=== PATIENT | female | born 1975 | race Caucasian/White ===

== ENCOUNTER 2016-07-15 09:48 | Outpatient (RCR) | payer OTHER ==
[~2016-07-15 09:48] MED LIST: ACET-2469 PO; ACHD5005 PO; CELE-63 PO; CPR500T PO; DESV50TA PO; DULO30CA; ENOX100D4 SQ; ENOX100D9 SQ; ENXP100I SC; ENXP40I.4 SC; FRS325T; GABA-488 PO; HYDR-2889 PO; IBP600T1 PO; NALT1TAB PO; NFNEB10T PO; OMEP-10 PO; WARF7.5T; WRF10T; WRF10T PO; ZLP10T PO; [UNRECOGNIZED DRUG - OTHER]
--- OUTSIDE RECORDS SUMMARY | 2016-07-15 09:51 | XMS REPORT | Continuity of Care Document ---
Author Author [facility] Address Unknown Phone Unavailable Active Allergies and Adverse Reactions Not on File Current Medications Not on file Active Problems Not on file Social History Tobacco Use Types Packs/Day Years Used Date Never Assessed Plan of Care Health Maintenance Due Date Last Done Comments Tdap Vaccines 1985 Tetanus Vaccine (Td 1985 Booster) Varicella Vaccines (1 of 1987 2 - 2 Dose Adolescent Series) Cervical Cancer Screening 1995 Breast Cancer 2014 Screening-Mammogram Influenza Vaccine (#1) 2016 Zoster Vaccine 2034 Annual Wellness Visit 2039 Results from Last 3 Months Not on file
[2016-07-15 10:09] LABS: BASOPHILS % (AUTO) 0 % (0-10); EOSINOPHILS # (AUTO) 0.1 10^3/uL (0.0-0.3); EOSINOPHILS % (AUTO) 2 % (0-10); LYMPHOCYTES # (AUTO) 1.8 X 10^3 (1.0-4.0); LYMPHOCYTES % (AUTO) 30 % (12-44); MEAN CORPUSCULAR HEMOGLOBIN 30 PG (25-34); MEAN CORPUSCULAR HGB CONC 33 G/DL (32-36); MEAN CORPUSCULAR VOLUME 91 FL (80-99); MEAN PLATELET VOLUME 8.7 FL (7.4-10.4); MONOCYTES # (AUTO) 0.4 X 10^3 (0.0-1.0); MONOCYTES % (AUTO) 6 % (0-12); NEUTROPHILS # (AUTO) 3.7 X 10^3 (1.8-7.8); NEUTROPHILS % (AUTO) 62 % (42-75); PLATELET COUNT 317 10^3/uL (130-400); RED BLOOD COUNT 4.39 10^6/uL (4.35-5.85); RED CELL DISTRIBUTION WIDTH 13.2 % (10.0-14.5)
[2016-07-15 10:24] LABS: INR 2.4 (0.8-1.4); PROTHROMBIN TIME PATIENT 25.8 SEC (12.2-14.7)
[2016-07-15 10:35] LABS: ALANINE AMINOTRANSFERASE 30 U/L (0-55); ALBUMIN 4.2 G/DL (3.2-4.5); ANION GAP 8 MMOL/L (5-14); ASPARTATE AMINO TRANSFERASE 18 U/L (5-34); BILIRUBIN,TOTAL 0.4 MG/DL (0.1-1.0); BLOOD UREA NITROGEN 12 MG/DL (7-18); BUN/CREATININE RATIO 18; CALCIUM 9.3 MG/DL (8.5-10.1); CARBON DIOXIDE 24 MMOL/L (21-32); CHLORIDE 110 MMOL/L (98-107); CREATININE SERUM 0.67 MG/DL (0.60-1.30); GFR ESTIMATED > 60; GLUCOSE 99 MG/DL (70-105); POTASSIUM 4.1 MMOL/L (3.6-5.0); SODIUM 142 MMOL/L (135-145); TOTAL PROTEIN 6.7 G/DL (6.4-8.2)
== END 2016-10-13 | disposition home or self-care (01) ==
LOC: ONC 09:48
PROVIDERS: ATTEND Internal Medicine Hematology & Oncology
DX: D68.59 Other primary thrombophilia (principal); Z86.711 Personal history of pulmonary embolism; Z86.718 Personal history of other venous thrombosis and embolism; Z79.01 Long term (current) use of anticoagulants
CPT/HCPCS: 36415; 80053; 85025; 85610; 99213

== ENCOUNTER 2017-12-07 14:32 | Outpatient (RCR) | payer OTHER ==
[2017-12-07 14:45] LABS: BASOPHILS % (AUTO) 0 % (0-10); EOSINOPHILS # (AUTO) 0.1 10^3/uL (0.0-0.3); EOSINOPHILS % (AUTO) 1 % (0-10); HEMATOCRIT 43 % (35-52); HEMOGLOBIN 14.3 G/DL (11.5-16.0); LYMPHOCYTES # (AUTO) 2.8 X 10^3 (1.0-4.0); LYMPHOCYTES % (AUTO) 32 % (12-44); MEAN CORPUSCULAR HEMOGLOBIN 31 PG (25-34); MEAN CORPUSCULAR HGB CONC 34 G/DL (32-36); MEAN CORPUSCULAR VOLUME 93 FL (80-99); MEAN PLATELET VOLUME 9.3 FL (7.4-10.4); MONOCYTES # (AUTO) 0.5 X 10^3 (0.0-1.0); MONOCYTES % (AUTO) 6 % (0-12); NEUTROPHILS # (AUTO) 5.4 X 10^3 (1.8-7.8); NEUTROPHILS % (AUTO) 61 % (42-75); PLATELET COUNT 333 10^3/uL (130-400); RED CELL DISTRIBUTION WIDTH 12.7 % (10.0-14.5); WHITE BLOOD COUNT 8.8 10^3/uL (4.3-11.0)
[2017-12-07 15:11] LABS: ALANINE AMINOTRANSFERASE 62 U/L (0-55); ALBUMIN 4.4 GM/DL (3.2-4.5); ALKALINE PHOSPHATASE 56 U/L (40-136); BILIRUBIN,TOTAL 0.4 MG/DL (0.1-1.0); BUN/CREATININE RATIO 25; CARBON DIOXIDE 27 MMOL/L (21-32); CHLORIDE 104 MMOL/L (98-107); CREATININE SERUM 0.72 MG/DL (0.60-1.30); GFR ESTIMATED > 60; GLUCOSE 121 MG/DL (70-105); POTASSIUM 3.9 MMOL/L (3.6-5.0); SODIUM 140 MMOL/L (135-145); TOTAL PROTEIN 7.2 GM/DL (6.4-8.2)
[2018-03-05] MEDS ORDERED: RIVA20TA PO ×2 (09:30)
[2018-03-05] MEDS ORDERED: NFNEB10T PO ×2 (09:30)
[2018-03-05] MEDS ORDERED: CELE200C PO ×2 (09:31)
== END 2018-03-07 | disposition home or self-care (01) ==
LOC: ONC 14:32
PROVIDERS: ATTEND Internal Medicine Hematology & Oncology
DX: D68.59 Other primary thrombophilia (principal); Z86.711 Personal history of pulmonary embolism; Z86.718 Personal history of other venous thrombosis and embolism; Z79.01 Long term (current) use of anticoagulants
CPT/HCPCS: 36415; 80053; 85025; 99213

== ENCOUNTER 2018-03-04 21:33 | Observation (INO) | payer OTHER ==
[~2018-03-04] VITALS: Ht 172.7 cm; Wt 140.9 kg
--- OUTSIDE RECORDS SUMMARY | 2018-03-04 21:40 | XMS REPORT ---
Author Author NAPOLEON FITZPATRICK Organization [facility] Address [address] [place] [address] Care Team Providers Care Hypnotherapist Name Role Phone NAPOLEON FITZPATRICK Unavailable PROBLEMS Type Condition ICD9-CM Code OWR73-HV Code Onset Dates Condition Status SNOMED Code Problem Obesity, unspecified 278.00 Active 027756402 Problem Obesity, unspecified obesity severity, unspecified obesity type E66.9 Active 656322020 Problem Abnormal stress test R94.39 Active 916977228 Problem Family history of diabetes mellitus V18.0 Active 355389815 Problem Routine general medical examination at health care facility V70.0 Active 173677967 Problem Other abnormal glucose 790.29 Active 728052752 Problem Primary osteoarthritis of left knee M17.12 Active 028427198 Problem Knee pain M25.569 Active 80877196 Problem Other fatigue R53.83 Active 779063537 Problem Essential hypertension I10 Active 50935911 Problem Abnormal glucose R73.09 Active 589675911 Problem Other malaise R53.81 Active 804957123 ALLERGIES No Information SOCIAL HISTORY Never Assessed PLAN OF CARE VITAL SIGNS MEDICATIONS Medication Instructions Dosage Frequency Start Date End Date Duration Status Pristiq 100 MG Orally Once a day 1 tablet 24h Sep, 10 days Active RESULTS No Results PROCEDURES No Known procedures IMMUNIZATIONS No Known Immunizations MEDICAL (GENERAL) HISTORY Type Description Date Medical History Protein C deficiency Monitor by Dr Case Medical History 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
--- OUTSIDE RECORDS SUMMARY | 2018-03-04 21:40 | XMS REPORT ---
Author NAPOLEON Ford Organization [employer] Address Unknown Phone Unavailable Care Team Providers Care Manager Grocery Name Role Phone NAPOLEON FTIZPATRICK CP Unavailable Allergies No Known Allergies Problems Problem Type Condition Code Onset Dates Condition Status Problem Obesity, unspecified 278.00 Active Problem Family history of diabetes mellitus V18.0 Active Problem Other abnormal glucose 790.29 Active Problem Abnormal stress test R94.39 Active Problem Essential hypertension I10 Active Problem Abnormal glucose R73.09 Active Problem Knee pain M25.569 Active Problem Other fatigue R53.83 Active Problem Routine general medical examination at health care facility V70.0 Active Problem Obesity, unspecified obesity severity, unspecified obesity type E66.9 Active Problem Other malaise R53.81 Active Medications Medication Code System Code Instructions Start Date End Date Status Dosage Celebrex [facility] [address]-64 200 mg Twice a day Oct 10, 2014 Aug 05, 2016 take 1 capsule (200 mg) by oral route 2 times per day as needed Results No Known Results Summary Purpose [employer] Submission
--- OUTSIDE RECORDS SUMMARY | 2018-03-04 21:40 | XMS REPORT ---
Author NAPOLEON Ford Organization [employer] Address Unknown Phone Unavailable Care Team Providers Care Entry Level Drafter Name Role Phone NAPOLEON FITZPATRICK CP Unavailable Allergies No Known Allergies Problems [...] Active Problem Other malaise R53.81 Active Medications No Known Medications Results No Known Results Summary Purpose [employer] Submission
--- OUTSIDE RECORDS SUMMARY | 2018-03-04 21:41 | XMS REPORT ---
Author Author NAPOLEON FITZPATRICK Organization [facility] Address [address] [place] [address] Care Team Providers Care Flat Optical Element Maker Name Role Phone NAPOLEON FITZPATRICK Unavailable PROBLEMS Type Condition ICD9-CM Code WIQ62-TC Code Onset Dates Condition Status SNOMED Code Problem Abnormal stress test R94.39 Active 727533102 Problem Essential hypertension I10 Active 67531080 Problem Obesity, unspecified obesity severity, unspecified obesity type E66.9 Active 201996218 Problem Protein C deficiency D68.59 Active 24196181 Problem Primary osteoarthritis of left knee M17.12 Active 747504089 Problem Other malaise R53.81 Active 657397495 Problem Other fatigue R53.83 Active 110244540 Problem Knee pain M25.569 Active 93784048 Problem Abnormal glucose R73.09 Active 570490498 ALLERGIES No Information ENCOUNTERS Encounter Location Date Diagnosis [place] [id number] [place] [address] Nov, [place] [address] [place] [address] Nov, Protein C deficiency D68.59 ; Pain in left knee M25.562 ; Hot flashes R23.2 ; Essential hypertension I10 ; Obesity, unspecified obesity severity, unspecified obesity type E66.9 and Pain in right knee M25.561 [place] [address] [address] Apr, [place] [address] [place] [id number] [place] [address] Mar, [place] [address] [address] Mar, Obesity, unspecified obesity severity, unspecified obesity type E66.9 and Encounter for screening mammogram for malignant neoplasm of breast Z12.31 [facility] [address] [address] January, [facility] [address] [address] January, [facility] [address] [address] January, [facility] [address] [address] January, [facility] [address] [place] [address] Dec, [facility] [address] [address] Nov, [place] [address] [place] [address] [address] 09 Oct, 2016 Hot flashes R23.2 [facility] [address] [address] 06 Oct, 2016 Obesity, unspecified obesity severity, unspecified obesity type E66.9 and Hot flashes R23.2 [place] [address] [address] Sep, Obesity, unspecified obesity severity, unspecified obesity type E66.9 [facility] [address], [place] [address] Sep, Obesity, unspecified obesity severity, unspecified obesity type E66.9 [facility] [address], [place] [address] Jul, [facility] [address] [place] [address] Jul, Obesity, unspecified obesity severity, unspecified obesity type E66.9 ; Essential hypertension I10 and Primary osteoarthritis of left knee M17.12 [facility] [address], [place] [address] Jul, [facility] [address] [place] [id number] [place] [address] Jun, [facility] [address] [place] [id number] [place] [address] Apr, [place] [address] [place] [id number] [place] [address] Apr, [facility] [address] [place] [id number] [place] [address] Apr, Atypical chest pain R07.89 [place] [address] [place] [id number] [place] [address] Feb, Obesity, unspecified obesity severity, unspecified obesity type E66.9 [place] [address] [place] [id number] [place] [address] January, Essential hypertension I10 [facility] [address] [place] [id number] [place] [address] Dec, [place] [address] [place] [id number] [place] [address] Nov, Obesity, unspecified obesity severity, unspecified obesity type E66.9 ; Essential hypertension I10 and Knee pain M25.569 [facility] [address] [place] [id number] [place] [address] Sep, Acute maxillary sinusitis J01.00 [facility] [address] [place] [id number] [place] [address] Aug, [place] [address] [place] [id number] [place] [address] Jul, Obesity, unspecified obesity severity, unspecified obesity type E66.9 ; Encounter for immunization Z23 ; Primary osteoarthritis of left knee M17.12 ; Family history of diabetes mellitus V18.0 and Other abnormal glucose 790.29 [place] [address] [place] [address] May, [facility] [address] [id number] [place] [address] Apr, [facility] [address] [id number] [place] [address] January, [facility] [address] [id number] [place] [address] January, [facility] [address] [id number] [place] [address] Dec, [facility] [address] [id number] [place] [address] Dec, [facility] [address] [id number] [place] [address] Sep, [facility] [address] [id number] [place] [address] Sep, [facility] [address] [id number] [place] [address] Sep, [facility] [address] [id number] [place] [address] Sep, [facility] [address] [id number] [place] [address] Sep, [facility] [address] [id number] [place] [address] Sep, [facility] [address] [id number] [place] [address] Sep, [facility] [address] [id number] [place] [address] Sep, [facility] [address] [id number] [place] [address] Sep, [facility] [address] [id number] [place] [address] Sep, IMMUNIZATIONS No Known Immunizations SOCIAL HISTORY Never Assessed REASON FOR VISIT PA Approval- Haley PLAN OF CARE VITAL SIGNS MEDICATIONS Unknown Medications RESULTS No Results PROCEDURES No Known procedures INSTRUCTIONS MEDICATIONS ADMINISTERED No Known Medications MEDICAL (GENERAL) HISTORY Type Description Date Medical [...]
--- OUTSIDE RECORDS SUMMARY | 2018-03-04 21:41 | XMS REPORT ---
Author Author NAPOLEON FITZPATRICK [facility] Address [address] [place] [address] Care Team Providers Care Furniture Assembler And Installer Name Role Phone NAPOLEON FITZPATRICK Unavailable PROBLEMS Type Condition ICD9-CM Code [id number] Code Onset Dates Condition Status SNOMED Code Problem Obesity, unspecified 278.00 Active 425276912 Problem Obesity, unspecified obesity severity, unspecified obesity type E66.9 Active 931200144 Problem Abnormal stress test R94.39 Active 095629024 Problem Family history of diabetes mellitus V18.0 Active 069219910 Problem Routine general medical examination at health care facility V70.0 Active 222687450 Problem Other abnormal glucose 790.29 Active 912759752 Problem Primary osteoarthritis of left knee M17.12 Active 650602666 Problem Knee pain M25.569 Active 40515273 Problem Other fatigue R53.83 Active 690707115 Problem Essential hypertension I10 Active 46952576 Problem Abnormal glucose R73.09 Active 488031552 Problem Other malaise R53.81 Active 845539150 ALLERGIES No Information SOCIAL HISTORY Never Assessed PLAN OF CARE VITAL SIGNS Height 68 in 2017-02-04 Weight 286.7 lbs 2017-02-04 BMI 43.59 kg/m2 2017-02-04 MEDICATIONS Medication Instructions Dosage Frequency Start Date End Date Duration Status Saxenda (Dose Escalation) 18 mg/3 mL Subcutaneous Once a day 3.0 mg 24h Sep, Apr, 90 days Active Gabapentin 300 MG Orally Three times a day 1 capsule 8h Oct, 30 day(s) Active NovoFine 30G X 8 MM Inject 24h Nov, Active Bystolic 10 mg Orally Once a day 1 tablet 24h Jul, Active Xarelto 20 MG Orally Once a day 1 tablet with food 24h Active Pristiq 100 MG Orally Once a day 1 tablet 24h Sep, 90 Active Diphenhydramine-Acetaminophen by oral route Sep, Active Celebrex 200 mg Orally twice a day 1 capsule 12h 08 Jul, 2016 Active RESULTS No Results PROCEDURES No Known [...]
--- OUTSIDE RECORDS SUMMARY | 2018-03-04 21:41 | XMS REPORT ---
Author Author NAPOLEON FITZPATRICK [facility] Address [address] [place] [address] Care Team Providers Care Power Distribution Engineer Name Role Phone NAPOLEON FITZPATRICK Unavailable PROBLEMS Type Condition ICD9-CM Code CGQ55-WL Code Onset Dates Condition Status SNOMED Code Problem Obesity, unspecified 278.00 Active 767320572 Problem Obesity, unspecified obesity severity, unspecified obesity type E66.9 Active 328571998 Problem Abnormal stress test R94.39 Active 787447603 Problem Family history of diabetes mellitus V18.0 Active 260788763 Problem Routine general medical examination at health care facility V70.0 Active 409491361 Problem Other abnormal glucose 790.29 Active 317116233 Problem Primary osteoarthritis of left knee M17.12 Active 305153530 Problem Knee pain M25.569 Active 87316722 Problem Other fatigue R53.83 Active 254100571 Problem Essential hypertension I10 Active 80798446 Problem Abnormal glucose R73.09 Active 065840899 Problem Other malaise R53.81 Active 187057863 ALLERGIES Unknown Allergies SOCIAL HISTORY No smoking Hx information available PLAN OF CARE VITAL SIGNS MEDICATIONS Medication Instructions Dosage Frequency Start Date End Date Duration Status Saxenda (Dose Escalation) 18 mg/3 mL Subcutaneous Once a day 0.6 mg QD x 7 days, 1.2 mg QD x 7 days, 1.8 mg QD x 7 days, 2.4 mg QD x 7 days, then 3 mg QD ( GOAL) 24h Jul, 10 Oct, 2016 28 days Active RESULTS No Results PROCEDURES No Known procedures IMMUNIZATIONS No Known Immunizations
--- OUTSIDE RECORDS SUMMARY | 2018-03-04 21:41 | XMS REPORT ---
Author Author NAPOLEON FITZPATRICK [facility] [employer] Address Unknown Phone Unavailable Care Team Providers Care Wine Manager Name Role Phone NAPOLEON FITZPATRICK CP Unavailable Allergies, Adverse Reactions, Alerts Substance Reaction Event Type Erythromycin Base Info Not Available Drug Allergy Problems Problem Type Condition Code Onset Dates Condition Status Problem Other abnormal glucose 790.29 Active Problem Routine general medical examination at health care facility V70.0 Active Problem Family history of diabetes mellitus V18.0 Active Problem Knee pain M25.569 Active Problem Essential hypertension I10 Active Problem Primary osteoarthritis of left knee M17.12 Active Problem Other malaise R53.81 Active Problem Other fatigue R53.83 Active Problem Abnormal glucose R73.09 Active Problem Obesity, unspecified obesity severity, unspecified obesity type E66.9 Active Assessment Essential hypertension I10 Active Assessment Obesity, unspecified obesity severity, unspecified obesity type E66.9 Active Problem Abnormal stress test R94.39 Active Assessment Primary osteoarthritis of left knee M17.12 Active Problem Obesity, unspecified 278.00 Active Medications Medication Code System Code Instructions Start Date End Date Status Dosage Saxenda (Dose Escalation) [facility] 7553-8135-97 18 mg/3 mL Subcutaneous Once a day Aug 05, 2016 0.6 mg QD x 7 days, 1.2 mg QD x 7 days, 1.8 mg QD x 7 days, 2.4 mg QD x 7 days, then 3 mg QD (GOAL) Celebrex [facility] [address]-57 200 mg Orally twice a day Aug 05, 2016 1 capsule Pristiq [facility] [address]-67 50 MG Oct 10, 2014 take 1 tablet by oral route once daily Gabapentin [facility] [address]-14 300 mg Oct 10, 2014 take 1 capsule by Oral route 1 time per day Bystolic [facility] [address]-89 10 mg Orally Once a day Aug 05, 2016 1 tablet Warfarin Sodium [facility] [address]-73 12 mg Orally, , and Thursdays Once a day 1 tablet Diphenhydramine-Acetaminophen NDC [address]-00 Oct 10, 2014 by oral route warfarin NDC 0 10 mg Oct 10, 2014 take 1 tablet (10 mg) by oral route once daily Procedures Procedure Coding System Code Date Office Visit, Est Pt., Level 3 CPT-4 45302 Aug 05, 2016 Vital Signs Date/Time: Aug 05, 2016 Cardiac Monitoring Heart Rate 78 bpm Weight 294.4 lbs Height 68 in BMI 44.76 Index Blood Pressure Diastolic 80 mmHg Blood Pressure Systolic 118 mmHg Results No Known Results Summary Purpose [employer] Submission
--- OUTSIDE RECORDS SUMMARY | 2018-03-04 21:41 | XMS REPORT ---
Author Author NAPOLEON FITZPATRICK Organization [facility] Address [address] [place] [address] Care Team Providers Care Military Police Officer Name Role Phone NAPOLEON FITZPATRICK Unavailable PROBLEMS Type Condition ICD9-CM Code KZJ33-WB Code Onset Dates Condition Status SNOMED Code Problem Obesity, unspecified 278.00 Active 503997115 Problem Obesity, unspecified obesity severity, unspecified obesity type E66.9 Active 054317834 Problem Abnormal stress test R94.39 Active 958072112 Problem Family history of diabetes mellitus V18.0 Active 734520386 Problem Routine general medical examination at health care facility V70.0 Active 973337200 Problem Other abnormal glucose 790.29 Active 096762325 Problem Primary osteoarthritis of left knee M17.12 Active 372683235 Problem Knee pain M25.569 Active 83858805 Problem Other fatigue R53.83 Active 653728482 Problem Essential hypertension I10 Active 63553377 Problem Abnormal glucose R73.09 Active 059368477 Problem Other malaise R53.81 Active 563989641 ALLERGIES No Information SOCIAL HISTORY Never Assessed PLAN OF CARE VITAL SIGNS MEDICATIONS Medication Instructions Dosage Frequency Start Date End Date Duration Status Pristiq 50 MG take 1 tablet by oral route once daily Sep, 90 Active Gabapentin 300 MG Orally Three times a day 1 capsule 8h Oct, 30 day(s) Active RESULTS No Results PROCEDURES No Known [...]
--- OUTSIDE RECORDS SUMMARY | 2018-03-04 21:41 | XMS REPORT ---
Author Author NAPOLEON FITZPATRICK Organization [employer] Address Unknown Phone Unavailable Care Team Providers Care Mailing Specialist Name Role Phone NAPOLEON FITZPATRICK CP Unavailable Allergies No Known Allergies Problems Problem Type Condition ICD-9 Code Onset Dates Condition Status Problem Family history of diabetes mellitus V18.0 Active Problem Other malaise and fatigue 780.79 Active Problem Routine general medical examination at health care facility V70.0 Active Problem Obesity, unspecified 278.00 Active Problem Essential hypertension, benign 401.1 Active Problem Other abnormal glucose 790.29 Active Medications Medication Code System Code Instructions Start Date End Date Status Dosage Pristiq [facility] [address]-52 100 MG Oct 10, 2014 take 1 tablet (100 mg) by oral route once daily Results No Known Results Summary Purpose [employer] Submission
--- OUTSIDE RECORDS SUMMARY | 2018-03-04 21:42 | XMS REPORT ---
Author Author NAPOLEON FITZPATRICK [facility] Address [address] [place] [address] Care Team Providers Care Tape Recorder Repairer Name Role Phone NAPOLEON FITZPATRICK Unavailable PROBLEMS Type Condition ICD9-CM Code UNL43-OA Code Onset Dates Condition Status SNOMED Code Problem Obesity, unspecified 278.00 Active 551625755 Problem Obesity, unspecified obesity severity, unspecified obesity type E66.9 Active 234183727 Problem Abnormal stress test R94.39 Active 258800781 Problem Family history of diabetes mellitus V18.0 Active 714210038 Problem Routine general medical examination at health care facility V70.0 Active 917669701 Problem Other abnormal glucose 790.29 Active 981892295 Problem Primary osteoarthritis of left knee M17.12 Active 898769721 Problem Knee pain M25.569 Active 41231063 Problem Other fatigue R53.83 Active 362013488 Problem Essential hypertension I10 Active 02175354 Problem Abnormal glucose R73.09 Active 197373594 Problem Other malaise R53.81 Active 909954360 ALLERGIES No Information SOCIAL HISTORY Never Assessed PLAN OF CARE VITAL SIGNS MEDICATIONS Unknown [...]
--- OUTSIDE RECORDS SUMMARY | 2018-03-04 21:42 | XMS REPORT ---
Author Author NAPOLEON FITZPATRICK [facility] Address [address] [place] [address] Care Team Providers Care New Order Clerk Name Role Phone NAPOLEON FITZPATRICK Unavailable PROBLEMS Type Condition ICD9-CM Code BDO38-EP Code Onset Dates Condition Status SNOMED Code Problem Obesity, unspecified 278.00 Active 395312582 Problem Obesity, unspecified obesity severity, unspecified obesity type E66.9 Active 939372683 Problem Abnormal stress test R94.39 Active 430714560 Problem Family history of diabetes mellitus V18.0 Active 371624725 Problem Routine general medical examination at health care facility V70.0 Active 217132128 Problem Other abnormal glucose 790.29 Active 605700941 Problem Primary osteoarthritis of left knee M17.12 Active 063590757 Problem Knee pain M25.569 Active 98793816 Problem Other fatigue R53.83 Active 156663778 Problem Essential hypertension I10 Active 67690384 Problem Abnormal glucose R73.09 Active 079720675 Problem Other malaise R53.81 Active 937801038 ALLERGIES Substance Reaction Event Type Date Status Erythromycin Base Unknown Drug Allergy Oct, Active SOCIAL HISTORY Never Assessed PLAN OF CARE Activity Details Follow Up 3 Months Reason:weight mgmt VITAL SIGNS Height 68 in 2016-11-03 Weight 289.2 lbs 2016-11-03 Temperature 98.5 degrees Fahrenheit 2016-11-03 Heart Rate 82 bpm 2016-11-03 Respiratory Rate 20 2016-11-03 BMI 43.97 kg/m2 2016-11-03 Blood pressure systolic 150 mmHg 2016-11-03 Blood pressure diastolic 82 mmHg 2016-11-03 MEDICATIONS Medication Instructions Dosage Frequency Start Date End Date Duration Status Gabapentin 300 MG Orally Three times a day 1 capsule 8h Oct, 90 days Active Pristiq 100 mg Orally Once a day 1 tablet 24h Oct, 90 days Active Xarelto 20 MG Orally Once a day 1 tablet with food 24h Active Saxenda (Dose Escalation) 18 mg/3 mL Subcutaneous Once a day 3.0 mg 24h 17 Sep, 2016 Apr, 90 days Active Celebrex 200 mg Orally twice a day 1 capsule 12h Jul, Active Pristiq 50 MG take 1 tablet by oral route once daily Sep, 90 Active Bystolic 10 mg Orally Once a day 1 tablet 24h Jul, Active Diphenhydramine-Acetaminophen by oral route Sep, Active RESULTS No Results PROCEDURES No Known [...]
--- OUTSIDE RECORDS SUMMARY | 2018-03-04 21:42 | XMS REPORT ---
Author Author NAPOLEON FITZPATRICK Organization [employer] Address Unknown Phone Unavailable Care Team Providers Care Singer Back Tender Name Role Phone NAPOLEON FITZPATRICK CP Unavailable [...] Start Date End Date Status Dosage Pristiq [facility] [address]-07 50 MG Oct 10, 2014 take 1 tablet by oral route once daily Results No Known Results Summary Purpose [employer] Submission
--- OUTSIDE RECORDS SUMMARY | 2018-03-04 21:42 | XMS REPORT ---
Author Author NAPOLEON FITZPATRICK Organization [facility] Address [address] [place] [address] Care Team Providers Care Copy Messenger Name Role Phone NAPOLEON FITZPATRICK Unavailable PROBLEMS Type Condition ICD9-CM Code MJD08-[id number] Code Onset Dates Condition Status SNOMED Code Problem Obesity, unspecified 278.00 Active 310859468 Problem Obesity, unspecified obesity severity, unspecified obesity type E66.9 Active 310500756 Problem Abnormal stress test R94.39 Active 960181106 Problem Family history of diabetes mellitus V18.0 Active 059042412 Problem Routine general medical examination at health care facility V70.0 Active 540341437 Problem Other abnormal glucose 790.29 Active 543936044 Problem Primary osteoarthritis of left knee M17.12 Active 568269578 Problem Knee pain M25.569 Active 16695053 Problem Other fatigue R53.83 Active 845050548 Problem Essential hypertension I10 Active 39022516 Problem Abnormal glucose R73.09 Active 572058067 Problem Other malaise R53.81 Active 650395497 ALLERGIES No Information SOCIAL HISTORY Never Assessed PLAN OF CARE VITAL SIGNS MEDICATIONS Medication Instructions Dosage Frequency Start Date End Date Duration Status NovoFine 30G X 8 MM Inject 24h Nov, Active RESULTS No Results PROCEDURES No Known [...]
--- OUTSIDE RECORDS SUMMARY | 2018-03-04 21:42 | XMS REPORT ---
Author Author NAPOLEON FITZPATRICK [facility] eClinicalWorks Address Unknown Phone Unavailable Care Team Providers Care Crane Mechanic Name Role Phone NAPOLEON FITZPATRICK CP Unavailable Allergies No Known Allergies Problems Problem Type Condition Code Onset Dates Condition Status Problem Other abnormal glucose 790.29 Active Problem Routine general medical examination at health care facility V70.0 Active Problem Family history of diabetes mellitus V18.0 Active Problem Abnormal stress test R94.39 Active Problem Obesity, unspecified 278.00 Active Problem Knee pain M25.569 Active Problem Essential hypertension I10 Active Problem Primary osteoarthritis of left knee M17.12 Active Problem Other malaise R53.81 Active Problem Other fatigue R53.83 Active Problem Abnormal glucose R73.09 Active Problem Obesity, unspecified obesity severity, unspecified obesity type E66.9 Active Medications No Known Medications Results No Known Results Summary Purpose eClinicalWorks Submission
--- OUTSIDE RECORDS SUMMARY | 2018-03-04 21:42 | XMS REPORT ---
Author Author NAPOLEON FITZPATRICK [facility] Address [address] [place] [address] Care Team Providers Care Drier Name Role Phone NAPOLEON FITZPATRICK Unavailable PROBLEMS Type Condition ICD9-CM Code DSJ70-CN Code Onset Dates Condition Status SNOMED Code Problem Obesity, unspecified 278.00 Active 735118426 Problem Obesity, unspecified obesity severity, unspecified obesity type E66.9 Active 366252272 Problem Abnormal stress test R94.39 Active 928526043 Problem Family history of diabetes mellitus V18.0 Active 012840529 Problem Routine general medical examination at health care facility V70.0 Active 126975748 Problem Other abnormal glucose 790.29 Active 683398966 Problem Primary osteoarthritis of left knee M17.12 Active 603752380 Problem Knee pain M25.569 Active 80989315 Problem Other fatigue R53.83 Active 686645712 Problem Essential hypertension I10 Active 05789879 Problem Abnormal glucose R73.09 Active 909259668 Problem Other malaise R53.81 Active 835320658 ALLERGIES Unknown Allergies SOCIAL HISTORY No smoking [...] then 3 mg QD ( GOAL) 24h Sep, 90 days Active RESULTS No Results PROCEDURES No Known procedures IMMUNIZATIONS No Known Immunizations
--- OUTSIDE RECORDS SUMMARY | 2018-03-04 21:42 | XMS REPORT ---
Author YUKO Roach Organization [employer] Address Unknown Phone Unavailable Care Team Providers Care Inspector Bicycle Name Role Phone YUKO RAMEY CP Unavailable Allergies No Known Allergies Problems Problem Type Condition Code Onset Dates Condition Status Problem Obesity, unspecified 278.00 Active Problem Family history of diabetes mellitus V18.0 Active Problem Other abnormal glucose 790.29 Active Problem Essential hypertension I10 Active Problem [...]
--- OUTSIDE RECORDS SUMMARY | 2018-03-04 21:42 | XMS REPORT ---
Author NAPOLEON Ford [facility] eClinicalWorks Address Unknown Phone Unavailable Care Team Providers Care Hand Spring Repairer Name Role Phone NAPOLEON FITZPATRICK CP Unavailable Allergies, Adverse Reactions, Alerts Substance Reaction Event Type Erythromycin Base Info Not Available Drug Allergy Problems Problem Type Condition Code Onset Dates Condition Status Assessment Obesity, unspecified obesity severity, unspecified obesity type E66.9 Active Problem Other abnormal glucose 790.29 Active Problem Obesity, unspecified 278.00 Active Problem Abnormal glucose R73.09 Active Problem Obesity, unspecified obesity severity, unspecified obesity type E66.9 Active Problem Essential hypertension I10 Active Problem Routine general medical examination at health care facility V70.0 Active Problem Family history of diabetes mellitus V18.0 Active Problem Other malaise R53.81 Active Problem Other fatigue R53.83 Active Assessment Other abnormal glucose 790.29 Active Assessment Family history of diabetes mellitus V18.0 Active Assessment Primary osteoarthritis of left knee M17.12 Active Assessment Encounter for immunization Z23 Active Medications Medication Code System Code Instructions Start Date End Date Status Dosage Gabapentin [facility] [address]-03 300 mg Oct 10, 2014 take 1 capsule by Oral route 1 time per day Celebrex [facility] [address]-66 200 mg Oct 10, 2014 take 1 capsule ( 200 mg) by oral route 2 times per day as needed Bystolic [facility] 96366798128 10MG TAKE 1 TABLET DAILY (LAST REFILL - MUST BE SEEN) Contrave [facility] 57789627610 8/90MG TAKE 2 TABLETS TWICE A DAY Pristiq [facility] [address]-49 50 MG Oct 10, 2014 take 1 tablet by oral route once daily Diphenhydramine-Acetaminophen [facility] [address]-83 Oct 10, 2014 by oral route warfarin [facility] 0 10 mg Oct 10, 2014 take 1 tablet (10 mg) by oral route once daily Procedures Procedure Coding System Code Date FLUARIX QUAD (3 & UP)- CPT-4 84191 Aug 16, 2015 TDAP (BOOSTRIX) CPT-4 44180 Aug 16, 2015 Office Visit, Est Pt., Level 3 CPT-4 22465 Aug 16, 2015 IMMUNIZATION ADMIN, EACH ADD (please include units) CPT-4 03759 Aug 16, 2015 SINGLE IMMUNIZATION ADMIN CPT-4 28703 Aug 16, 2015 Vital Signs Date/Time: Aug 16, 2015 Temperature 98.2 F Weight 286.3 lbs Height 68 in BMI 43.53 Index Blood Pressure Diastolic 80 mmHg Blood Pressure Systolic 140 mmHg Cardiac Monitoring Heart Rate 80 bpm Results Name Result Date Reference Range Unit Abnormality Flag A1C (IN HOUSE) Immunizations Vaccine Administration Date FLUARIX QUAD (3 & UP)-GSK-2014Aug 16, 2015 TDAP (BOOSTRIX) Aug 16, 2015 Summary Purpose eClinicalWorks Submission
--- OUTSIDE RECORDS SUMMARY | 2018-03-04 21:43 | XMS REPORT ---
Author Author NAPOLEON FITZPATRICK Organization [facility] Address [address] [place] [address] Care Team Providers Care Premix Concrete Batcher Name Role Phone NAPOLEON FITZPATRICK Unavailable PROBLEMS Type Condition ICD9-CM Code LME27-YA Code Onset Dates Condition Status SNOMED Code Problem Abnormal stress test R94.39 Active 147370208 Problem Essential hypertension I10 Active 65040107 Problem Obesity, unspecified obesity severity, unspecified obesity type E66.9 Active 898144115 Problem Protein C deficiency D68.59 Active 95085860 Problem Primary osteoarthritis of left knee M17.12 Active 638425410 Problem Other malaise R53.81 Active 354453719 Problem Other fatigue R53.83 Active 389168211 Problem Knee pain M25.569 Active 31072851 Problem Abnormal glucose R73.09 Active 526940807 ALLERGIES No Information ENCOUNTERS Encounter Location Date Diagnosis [place] [id number] [place] [address] Nov, [place] [address] [place] [address] Nov, Protein C deficiency D68.59 ; Pain in left knee M25.562 ; Hot flashes R23.2 ; Essential hypertension I10 ; Obesity, unspecified obesity severity, unspecified obesity type E66.9 and Pain in right knee M25.561 [place] [address] [address] Apr, [place] [address] [place] [id number] [place] [address] Mar, [place] [address] [address] Mar, Obesity, unspecified obesity severity, unspecified obesity type E66.9 and Encounter for screening mammogram for malignant neoplasm of breast Z12.31 [facility] [address] [address] January, [facility] [address] [address] January, [facility] [address] [address] January, [facility] [address] [address] January, [facility] [address] [place] [address] Dec, [facility] [address] [address] Nov, [place] [address] [place] [id number] [address] 09 Oct, 2016 Hot flashes R23.2 [facility] [address] [address] 06 Oct, 2016 Obesity, unspecified obesity severity, unspecified obesity type E66.9 and Hot flashes R23.2 [place] [address] [address] Sep, Obesity, unspecified obesity severity, unspecified obesity type E66.9 [facility] [address] [address] Sep, Obesity, unspecified obesity severity, unspecified obesity type E66.9 [facility] [address] [address] Jul, [facility] [address] [address] Jul, Obesity, unspecified obesity severity, unspecified obesity type E66.9 ; Essential hypertension I10 and Primary osteoarthritis of left knee M17.12 [facility] [address] [address] Jul, [facility] [address] [place] [id number] [place] [address] Jun, [facility] [address] [place] [id number] [place] [address] Apr, [place] [address] [place] [id number] [place] [address] Apr, [facility] [address] [place] [id number] [place] [address] Apr, Atypical chest pain R07.89 [place] [address] [place] [id number] [place] [address] Feb, Obesity, unspecified obesity severity, unspecified obesity type E66.9 [place] [address] [place] [id number] [place] [address] January, Essential hypertension I10 [facility] [address] [place] [id number] [place] [address]- [address] Dec, [place] [address] [place] [id number] [place] [address] Nov, Obesity, unspecified obesity severity, unspecified obesity type E66.9 ; Essential hypertension I10 and Knee pain M25.569 [facility] [address] [place] [id number] [place] [address] Sep, Acute maxillary sinusitis J01.00 [facility] [address] [place] [id number] [place] [address] Aug, [place] [address] [place] [id number] [place] [address] Jul, Obesity, unspecified obesity severity, unspecified obesity type E66.9 ; Encounter for immunization Z23 ; Primary osteoarthritis of left knee M17.12 ; Family history of diabetes mellitus V18.0 and Other abnormal glucose 790.29 [place] [address] [place] [address] May, [facility] [address] [id number] [place] [address] Apr, [facility] [address] [id number] [place] [address] January, [facility] [address] [id number] [place] [address] January, [facility] [address] [id number] [place] [address] Dec, [facility] [address] [id number] [place] [address]- [address] Dec, [facility] [address] [id number] [place] [address]- [address] Sep, [facility] [address] [id number] [place] [address]- [address] Sep, [facility] [address] [id number] [place] [address] Sep, [facility] [address] [id number] [place] [address] Sep, [facility] [address] [id number] [place] [address]- [address] Sep, [facility] [address] [id number] [place] [address]- [address] Sep, [facility] [address] [id number] [place] [address]- [address] Sep, [facility] [address] [id number] [place] [address]- [address] Sep, [facility] [address] [id number] [place] [address]- [address] Sep, [facility] [address] [id number] [place] [address]- [address] Sep, IMMUNIZATIONS No Known Immunizations SOCIAL HISTORY Never Assessed REASON FOR VISIT Resend Medication PLAN OF CARE VITAL SIGNS MEDICATIONS Medication Instructions Dosage Frequency Start Date End Date Duration Status Pristiq 100 MG Orally Once a day 1 tablet 24h Sep, 90 days Active RESULTS No [...]
--- OUTSIDE RECORDS SUMMARY | 2018-03-04 21:43 | XMS REPORT ---
Author NAPOLEON Ford Organization [employer] Address Unknown Phone Unavailable Care Team Providers Care Kettle Skimmer Name Role Phone NAPOLEON FITZPATRICK CP Unavailable [...] R53.81 Active Problem Other fatigue R53.83 Active Medications Medication Code System Code Instructions Start Date End Date Status Dosage Haley [facility] [id number] 8/90MG TAKE 2 TABLETS TWICE A DAY Results No Known Results Summary Purpose eClinicalWorks Submission
--- OUTSIDE RECORDS SUMMARY | 2018-03-04 21:43 | XMS REPORT ---
Author NAPOLEON Ford Organization [employer] Address Unknown Phone Unavailable Care Team Providers Care Transmission Repairer Name Role Phone NAPOLEON FITZPATRICK CP Unavailable Allergies No Known Allergies Problems Problem Type Condition Code Onset Dates Condition Status Problem Obesity, unspecified 278.00 Active Problem Family history of diabetes mellitus V18.0 Active Problem Other abnormal glucose 790.29 Active Assessment Essential hypertension I10 Active Problem Essential hypertension I10 Active Problem Abnormal glucose R73.09 Active Problem Knee pain M25.569 Active Problem Other fatigue R53.83 Active Problem Routine general medical examination at health care facility V70.0 Active Problem Obesity, unspecified obesity severity, unspecified obesity type E66.9 Active Problem Other malaise R53.81 Active Medications Medication Code System Code Instructions Start Date End Date Status Dosage [facility] [address]-35 10 mg Orally Once a day January 28, 2016 February 02, 2016 1 tablet Results No Known Results Summary Purpose eClinicalWorks Submission
--- OUTSIDE RECORDS SUMMARY | 2018-03-04 21:43 | XMS REPORT ---
Author YUKO Roach Organization [employer] Address Unknown Phone Unavailable Care Team Providers Care Residence Manager Name Role Phone YUKO RAMEY CP Unavailable [...]
[2018-03-04] MEDS ORDERED: ACETAMINOPHEN 500 MG TAB (TYLENOL) PO ONE (22:00)
[2018-03-04] MEDS ORDERED: ASPIRIN 81 MG CHEW (CHILDREN'S ASA) PO ONE (22:00)
[2018-03-04 22:06] LABS: BASOPHILS % (AUTO) 0 % (0-10); EOSINOPHILS # (AUTO) 0.1 10^3/uL (0.0-0.3); EOSINOPHILS % (AUTO) 1 % (0-10); HEMATOCRIT 37 % (35-52); HEMOGLOBIN 12.9 G/DL (11.5-16.0); LYMPHOCYTES # (AUTO) 2.2 X 10^3 (1.0-4.0); LYMPHOCYTES % (AUTO) 21 % (12-44); MEAN CORPUSCULAR HEMOGLOBIN 32 PG (25-34); MEAN CORPUSCULAR HGB CONC 35 G/DL (32-36); MEAN CORPUSCULAR VOLUME 92 FL (80-99); MEAN PLATELET VOLUME 9.3 FL (7.4-10.4); MONOCYTES # (AUTO) 0.6 X 10^3 (0.0-1.0); MONOCYTES % (AUTO) 6 % (0-12); NEUTROPHILS # (AUTO) 7.7 X 10^3 (1.8-7.8); NEUTROPHILS % (AUTO) 73 % (42-75); PLATELET COUNT 308 10^3/uL (130-400); RED BLOOD COUNT 4.07 10^6/uL (4.35-5.85); RED CELL DISTRIBUTION WIDTH 12.7 % (10.0-14.5); WHITE BLOOD COUNT 10.6 10^3/uL (4.3-11.0)
[2018-03-04 22:17] LABS: PROTHROMBIN TIME PATIENT 13.6 SEC (12.2-14.7)
[2018-03-04 22:24] LABS: ALANINE AMINOTRANSFERASE 81 U/L (0-55); ALBUMIN 4.2 GM/DL (3.2-4.5); ALKALINE PHOSPHATASE 54 U/L (40-136); AMYLASE 47 U/L (25-125); BILIRUBIN,TOTAL 0.5 MG/DL (0.1-1.0); BUN/CREATININE RATIO 14; CALCIUM 9.6 MG/DL (8.5-10.1); CARBON DIOXIDE 21 MMOL/L (21-32); CHLORIDE 105 MMOL/L (98-107); CREATINE KINASE 45 U/L (29-168); CREATININE SERUM 0.77 MG/DL (0.60-1.30); GFR ESTIMATED > 60; GLUCOSE 180 MG/DL (70-105); LIPASE 49 U/L (8-78); MAGNESIUM 2.1 MG/DL (1.8-2.4); POTASSIUM 3.7 MMOL/L (3.6-5.0); SODIUM 139 MMOL/L (135-145); TOTAL PROTEIN 7.1 GM/DL (6.4-8.2)
[2018-03-04 22:44] LABS: CREATINE KINASE MB 0.3 NG/ML (<6.6); TSH (THYROID ANALYZER) 0.29 UIU/ML (0.35-4.94)
[2018-03-04] MEDS ORDERED: NITROGLYCERIN 0.4 MG SL TABS BTL 25'S SL ONE (23:05)
[2018-03-04] MEDS ORDERED: IOHEXOL 350 MG/ML 150 ML (OMNIPAQUE 350) VIAL IV ONE (23:15)
[2018-03-04] MEDS ORDERED: NS 250 ML (IVPB) BAG IV ONE (23:15)
[2018-03-04] MEDS ORDERED: NITROGLYCERIN 0.4 MG SL TABS BTL 25'S SL PRN (23:15)
[2018-03-04 23:20] LABS: FREE T4 (FREE THYROXINE) 0.94 NG/DL (0.70-1.48)
[2018-03-05] VITALS (12 sets, daily range): BP systolic 117–140; BP diastolic 73–84
[2018-03-05] MEDS ORDERED: cefTRIAXone INJECTION 1,000 MG in NS (IVPB) 50 ML IV ONE (00:30)
--- NOTE | 2018-03-05 03:40 | ED Chest Pain ---
General Chief Complaint: Chest Pain Stated Complaint: CHEST PAIN; FEVER Nursing Triage Note: PT TO ED 6 W/ S.O. FOR C/O CHEST TIGHTNESS, SOB ONSET LAST NOC. PT ALSO C/O CHILLS. 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 NO OTHER C/O VOICED Nursing Sepsis Screen: No Definite Risk Source: patient Exam Limitations: no limitations History of Present Illness Date Seen by Provider: Mar 04, 2018 Time Seen by Provider: 21:36 Initial Comments PT ARRIVES VIA POV FROM HOME C/O CHEST TIGHTNESS BEGAN LAST NIGHT AND HAS CONTINUED ALL DAY--RATES PAIN 2/10 PAIN RADIATES THROUGH TO BACK HAS BEEN SHORT OF BREATH ALL DAY TODAY SYMPTOMS INCREASE WITH MINIMAL EXERTION HAS HAD TEMP UP TO 100.4 WITH SWEATS AND CHILLS ALL DAY NO COUGH OR URI SYMPTOMS NO NAUSEA/VOMITING/DIARRHEA OR ABDOMINAL PAIN NO SORE THROAT NO URINARY SYMPTOMS NO SWELLING IN LEGS/FEET OR PAIN IN CALVES NO PALPITATIONS NO DIZZINESS NO SYNCOPE/NEAR-SYNCOPE NO KNOWN SICK CONTACTS PT HAS HISTORY OF DVT'S/MULTIPLE P.E.'S --IN 2007. WAS DX WITH PROTEIN C DEFICIENCY. PT HAS HAD A VENA CAVA FILTER PLACED PT IS ON XARELTO NO CHANGES IN DOSES AND NO MISSED DOSES OF MEDICATIONS. PT DID HAVE AN ABNORMAL STRESS TEST AND NORMAL CARDIAC CATH 04/2016--DONE FOR SIMILAR SYMPTOMS NO PROBLEMS SINCE THEN PCP: TOMER, ADELE FITZPATRICK HEMATOLOGY: DR. CHRISTELLE JEAN BAPTISTE DID STRESS TEST AND CARDIAC CATH Allergies and Home Medications Allergies Coded Allergies: erythromycin base (Verified Allergy, Unknown, 10/25/12) Home Medications Acetaminophen/Diphenhydramine 1 Each Tablet, 1 EACH PO HS, (Reported) Desvenlafaxine Succinate 50 Mg Tab.er.24h, 100 MG PO DAILY, (Reported) Gabapentin 300 Mg Capsule, 300 MG PO DAILY, (Reported) Nebivolol Hcl 10 Mg Tablet, 10 MG PO DAILY, (Reported) Patient Home Medication List Home Medication List Reviewed: Yes Review of Systems Constitutional: see HPI, chills, diaphoresis, fever Respiratory: See HPI; Denies Cough; Shortness of Air, SOA With Exertion Cardiovascular: See HPI, Chest Pain; Denies Edema, Denies Irregular Heart Rate , Denies Lightheadedness, Denies Palpitations, Denies Syncope Gastrointestinal: No Symptoms Reported Genitourinary: No Symptoms Reported Musculoskeletal: see HPI, back pain Skin: no symptoms reported Psychiatric/Neurological: No Symptoms Reported; Denies Headache Endocrine: No Symptoms Reported Hematologic/Lymphatic: See HPI Past Cwobjgi-Stpclm-Vruuha Hx Patient Social History Alcohol Use: Denies Use Recreational Drug Use: No Smoking Status: Never a Smoker Recent Foreign Travel: No Contact w/Someone Who Travel: No Recent Infectious Disease Expo: No Recent Hopitalizations: No Immunizations Up To Date Date of Pneumonia Vaccine: Oct 05, 2012 Date of Influenza Vaccine: Oct 05, 2012 Seasonal Allergies Seasonal Allergies: No Past Medical History Surgeries: Yes (ECTOPIC -OVARIAN RUPTURE FOLLOWED BY HYST/BSO; ENDOMETRIAL ABLATION; LAPAROTOMY; VENA CAVA FILTER; KNEE SCOPES X 3--2 ON RIGHT , 1 ON LEFT; CARDIAC CATH 04/2016--NO INTERVENTION) Cardiac, Hysterectomy, Oophorectomy, Orthopedic, Tonsillectomy, Vascular Surgery Respiratory: Yes (MULTIPLE PE'S 2007--VENA CAVA FILTER IN PLACE ) Pulmonary Embolism Currently Using CPAP: No Currently Using BIPAP: No Cardiac: Yes (ABNORMAL NUCLEAR STRESS TEST WITH NORMAL CARDIAC CATH 04/2016; MILD MR/TR; MILD LEFT ATRIAL DILATION ; MILD DIASTOLIC DYSFUNCTION. 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 ) Adverse Reaction/Blood Tranf: No Family Medical History No Pertinent Family Hx Physical Exam Vital Signs Vital Signs - First Documented 03/04/18 21:38 Temp 100.0 Pulse 117 Resp 20 B/P (MAP) 149/76 (100) Pulse Ox 95 O2 Delivery Room Air Capillary Refill : Less Than 3 Seconds General Appearance: No Apparent Distress, Obese Neck: Full Range of Motion, Normal Inspection, Non Tender, Supple Respiratory: Normal Breath Sounds, No Accessory Muscle Use, No Respiratory Distress Cardiovascular: No Edema, No JVD, No Murmur, Normal Peripheral Pulses, Tachycardia Gastrointestinal: Non Tender, Soft Extremity: Normal Capillary Refill, Normal Inspection, Normal Range of Motion, Non Tender, No Calf Tenderness, No Pedal Edema Neurologic/Psychiatric: Alert, Oriented x3, No Motor/Sensory Deficits, Normal Mood/Affect, forge heater II-XII Norm as Tested Skin: Normal Color, Warm/Dry Focused Exam Lactate Level 03/04/18 21:55: Lactic Acid Level 2.43*H 03/04/18 23:50: Lactic Acid Level 1.32 Lactic Acid Level Laboratory Tests Test 03/04/18 21:55 03/04/18 23:50 Lactic Acid Level 2.43 MMOL/L (0.50-2.00) *H 1.32 MMOL/L (0.50-2.00) Progress/Results/Core Measures Results/Orders Lab Results Laboratory Tests Test 03/04/18 21:55 03/04/18 23:50 Range/Units White Blood Count 10.6 4.3-11.0 10^3/uL Red Blood Count 4.07 L 4.35-5.85 10^6/uL Hemoglobin 12.9 11.5-16.0 G/DL Hematocrit 37 35-52 % Mean Corpuscular Volume 92 80-99 FL Mean Corpuscular Hemoglobin 32 25-34 PG Mean Corpuscular Hemoglobin Concent 35 32-36 G/DL Red Cell Distribution Width 12.7 10.0-14.5 % Platelet Count 308 130-400 10^3/uL Mean Platelet Volume 9.3 7.4-10.4 FL Neutrophils (%) (Auto) 73 42-75 % Lymphocytes (%) (Auto) 21 12-44 % Monocytes (%) (Auto) 6 0-12 % Eosinophils (%) (Auto) 1 0-10 % Basophils (%) (Auto) 0 0-10 % Neutrophils # (Auto) 7.7 1.8-7.8 X 10^3 Lymphocytes # (Auto) 2.2 1.0-4.0 X 10^3 Monocytes # (Auto) 0.6 0.0-1.0 X 10^3 Eosinophils # (Auto) 0.1 0.0-0.3 10^3/uL Basophils # (Auto) 0.0 0.0-0.1 10^3/uL Prothrombin Time 13.6 12.2-14.7 SEC INR Comment 1.0 0.8-1.4 Activated Partial Thromboplast Time 27 24-35 SEC Sodium Level 139 135-145 MMOL/L Potassium Level 3.7 3.6-5.0 MMOL/L Chloride Level 105 98-107 MMOL/L Carbon Dioxide Level 21 21-32 MMOL/L Anion Gap 13 5-14 MMOL/L Blood Urea Nitrogen 11 7-18 MG/DL Creatinine 0.77 0.60-1.30 MG/DL Estimat Glomerular Filtration Rate > 60 BUN/Creatinine Ratio 14 Glucose Level 180 H 70-105 MG/DL Lactic Acid Level 2.43 *H 1.32 0.50-2.00 MMOL/L Calcium Level 9.6 8.5-10.1 MG/DL Magnesium Level 2.1 1.8-2.4 MG/DL Total Bilirubin 0.5 0.1-1.0 MG/DL Aspartate Amino Transf (AST/SGOT) 50 H 5-34 U/L Alanine Aminotransferase (ALT/SGPT) 81 H 0-55 U/L Alkaline Phosphatase 54 40-136 U/L Total Creatine Kinase 45 29-168 U/L Creatine Kinase MB 0.3 <6.6 NG/ML Troponin I < 0.30 <0.30 NG/ML B-Type Natriuretic Peptide 14.5 <100.0 PG/ML Total Protein 7.1 6.4-8.2 GM/DL Albumin 4.2 3.2-4.5 GM/DL Amylase Level 47 25-125 U/L Lipase 49 8-78 U/L Free Thyroxine 0.94 0.70-1.48 NG/DL TSH Stone Testing 0.29 L 0.35-4.94 UIU/ML My Orders Orders - RAYMOND FIELD DO Amylase (03/04/18 21:46) Cbc With Automated Diff (03/04/18 21:46) Comprehensive Metabolic Panel (03/04/18 21:46) Creatine Kinase (03/04/18 21:46) Creatine Kinase Mb (03/04/18 21:46) Lipase (03/04/18 21:46) Partial Thromboplastin Time (03/04/18 21:46) Protime With Inr (03/04/18 21:46) Troponin I (6/7/18 21:46) Chest 1 View, Ap/Pa Only (03/04/18 21:46) O2 (03/04/18 21:46) Ekg Tracing (03/04/18 21:46) Aspirin Chewable Tablet (Baby Aspirin Ch (03/04/18 22:00) BNP (03/04/18 21:46) Monitor-Rhythm Ecg Trace Only (03/04/18 21:46) Lactic Acid Analyzer (03/04/18 21:46) Magnesium (03/04/18 21:46) Thyroid Analyzer (03/04/18 21:46) Blood Culture (03/04/18 21:46) Acetaminophen Tablet (Tylenol Tablet) (03/04/18 22:00) Free T4 (Free Thyroxine) (03/04/18 21:55) Ct Angio Chest W (03/04/18 23:01) Nitroglycerin 0.4 Mg Btl 25's (Nitrostat (03/04/18 23:15) Iohexol Injection (Omnipaque 350 Mg/Ml 1 (03/04/18 23:15) Ns (Ivpb) (Sodium Chloride 0.9%) (03/04/18 23:15) Nitroglycerin 0.4 Mg Btl 25's (Nitrostat (03/04/18 23:05) Medications Given in ED Current Medications Medications Dose Ordered Sig/Tyrone Route Start Time Stop Time Status Last Admin Dose Admin Acetaminophen 1,000 mg ONCE ONCE PO 03/04/18 22:00 03/04/18 22:01 DC 03/04/18 22:03 1,000 MG Aspirin 324 mg ONCE ONCE PO 03/04/18 22:00 03/04/18 22:01 DC 03/04/18 22:03 324 MG Iohexol 125 ml ONCE ONCE IV 03/04/18 23:15 03/04/18 23:16 DC 03/04/18 23:25 125 ML Nitroglycerin 1 TAB Q 5 MIN X 3 NEEDED PRN SL 03/04/18 23:15 03/04/18 23:06 0.4 MG Sodium Chloride 250 ml ONCE ONCE IV 03/04/18 23:15 03/04/18 23:16 DC 03/04/18 23:25 80 ML Vital Signs/I&O 03/04/18 03/04/18 21:38 21:38 Temp 100.0 Pulse 117 Resp 20 B/P (MAP) 149/76 (100) Pulse Ox 95 O2 Delivery Room Air Room Air Blood Pressure Mean: 94 Progress Progress Note : Progress Note PAIN -FREE WITH NTG X 1 UNEVENTFUL ER STAY DISCUSSED ABNORMAL FINDING OF CALCIFIED LEFT PULMONARY NODULE AND IMPORTANCE OF FOLLOW UP WITH HER PCP FOR FURTHER EVALUATION Initial ECG Impression Date: Mar 04, 2018 Initial ECG Impression Time: 21:44 Initial ECG Rate: 112 Initial ECG Rhythm: S.Tach Diagnostic Imaging Comments CXR--MONISHA NODULE, NO ACUTE PROCESS, PENDING RADIOLOGIST REVIEW CT CHEST ANGIOGRAM--NO P.E. OR OTHER ACUTE PROCESS, LEFT SUPRAHILAR MASS WITH CALCIFICATIONS APPROX 3 CM IN DIAMETER--NEW SINCE PREVIOUS CT 05/13/16. 1.8 CM CALCIFIED MONISHA MASS WITH SATELLITE CALCIFICATIONS--STABLE COMPARED TO PRIOR CT. SUBCENTIMETER LEFT HILAR AND MEDIASTINAL LYMPH NODES, SOME CALCIFIED, UNCHANGED. MODERATE HEPATIC STEATOSIS OTHER CHRONIC/STABLE FINDINGS PER [facility] VIA FAX @ 1352 Reviewed: Reviewed by Me Departure Communication (Admissions) 0020--SPOKE WITH DR. ESTEVEZ. ACCEPTS PT FOR ADMIT Impression Primary Impression: Chest pain Additional Impressions: Fever Shortness of breath Disposition: ADMITTED INPATIENT Condition: Improved Admissions Decision to Admit Reason: Admit from ER (General) Decision to Admit/Date: Mar 05, 2018 Time/Decision to Admit Time: 00:20 Departure-Patient Inst. Referrals: MERLIN TIMMONS MD (PCP) Primary Care Physician NAPOLEON FITZPATRICK (Family) Primary Care Physician RAYMOND FIELD DO Mar 05, 2018 03:40
[2018-03-05] MEDS ORDERED: morphine INJ 4 MG/ML 1 ML (VIAL/SYRINGE) IV PRN (03:45)
[2018-03-05] MEDS ORDERED: ACETAMINOPHEN 500 MG TAB (TYLENOL) PO PRN (03:45)
[2018-03-05] MEDS ORDERED: NITROGLYCERIN 0.4 MG SL TABS BTL 25'S SL PRN (03:45)
[2018-03-05 05:59] LABS: BASOPHILS % (AUTO) 0 % (0-10); EOSINOPHILS # (AUTO) 0.1 10^3/uL (0.0-0.3); EOSINOPHILS % (AUTO) 1 % (0-10); HEMATOCRIT 36 % (35-52); HEMOGLOBIN 12.2 G/DL (11.5-16.0); LYMPHOCYTES % (AUTO) 27 % (12-44); MEAN CORPUSCULAR HEMOGLOBIN 31 PG (25-34); MEAN CORPUSCULAR HGB CONC 34 G/DL (32-36); MEAN CORPUSCULAR VOLUME 93 FL (80-99); MEAN PLATELET VOLUME 9.4 FL (7.4-10.4); MONOCYTES # (AUTO) 0.6 X 10^3 (0.0-1.0); MONOCYTES % (AUTO) 8 % (0-12); NEUTROPHILS # (AUTO) 4.8 X 10^3 (1.8-7.8); NEUTROPHILS % (AUTO) 65 % (42-75); PLATELET COUNT 271 10^3/uL (130-400); RED BLOOD COUNT 3.88 10^6/uL (4.35-5.85); RED CELL DISTRIBUTION WIDTH 12.9 % (10.0-14.5); WHITE BLOOD COUNT 7.5 10^3/uL (4.3-11.0)
[2018-03-05 06:24] LABS: ALANINE AMINOTRANSFERASE 67 U/L (0-55); ALBUMIN 3.8 GM/DL (3.2-4.5); ALKALINE PHOSPHATASE 49 U/L (40-136); BILIRUBIN,TOTAL 0.6 MG/DL (0.1-1.0); BUN/CREATININE RATIO 16; CALCIUM 9.2 MG/DL (8.5-10.1); CARBON DIOXIDE 22 MMOL/L (21-32); CHLORIDE 108 MMOL/L (98-107); CHOLESTEROL 170 MG/DL (< 200); CREATINE KINASE 34 U/L (29-168); CREATININE SERUM 0.64 MG/DL (0.60-1.30); GFR ESTIMATED > 60; GLUCOSE 111 MG/DL (70-105); HDL CHOLESTEROL 38 MG/DL (40-60); SODIUM 140 MMOL/L (135-145); TOTAL PROTEIN 6.4 GM/DL (6.4-8.2); TRIGLYCERIDES 79 MG/DL (<150); VLDL CHOLESTEROL 16 MG/DL (5-40)
[2018-03-05 06:31] LABS: MYOGLOBIN SERUM 15.7 NG/ML (10.0-92.0)
--- NOTE | 2018-03-05 08:04 | Diagnostic Imaging Report ---
INDICATION: Chest pain Frontal chest obtained at 1015 PM And compared with 05/23/16. Heart is borderline in size. Nodular lesion in the left upper lobe is unchanged from the previous study. There is no consolidation or pneumothorax or pleural fluid. IMPRESSION: Unchanged left upper lobe nodular lesion. No focal consolidation or pneumothorax or pleural fluid. Dictated by: Dictated on workstation # [id number]
[2018-03-05] MEDS ORDERED: ASPIRIN E.C. 325 MG (ECOTRIN) TABLET PO SCH (09:00)
[2018-03-05] MEDS ORDERED: RIVA20TA PO ×2 (09:30)
[2018-03-05] MEDS ORDERED: NFNEB10T PO ×2 (09:30)
[2018-03-05] MEDS ORDERED: CELE200C PO ×2 (09:31)
--- NOTE | 2018-03-05 09:36 | Diagnostic Imaging Report ---
PROCEDURE: CT angiography of the chest with contrast. TECHNIQUE: Multiple contiguous axial images were obtained through the chest after uneventful bolus administration of intravenous contrast. Reconstructed CTA MIP acquisitions were also performed. INDICATION: Chest tightness. The previous CTA chest exam performed on 05/13/2016 failed to show any sign of an acute cardiopulmonary abnormality. Particularly, there is no evidence for pulmonary embolus or for a dissection. On this exam, there is still no defect within the pulmonary arteries to indicate pulmonary embolus. The aorta is not abnormally dilated and there is no sign of dissection. The heart size is within normal limits. There are no coronary artery calcifications evident. There is no sign of failure, pneumonia or pleural effusion to suggest an acute abnormality. The previous CTA chest exam did note a calcified lung mass in the left upper lobe. That finding is again evident on this study and seems similar in appearance. This finding measures 1.9 x 2.2 cm. I suspect that this is a calcified granuloma. However, in the interval since the prior study, a poorly defined low density mass has developed in the left suprahilar region. This mass measures 1.4 x 3.3 x 3.2 cm in maximum transverse, AP and longitudinal dimensions. This finding should be considered neoplastic until proven otherwise. If further imaging is desired, PET CT would be recommended. Because of its central location, this lesion would be difficult to biopsy using CT guidance. Bronchoscopy should be considered for further evaluation. However, I am not sure that this lesion would be accessible to biopsy via bronchoscopy. There are a few small mediastinal nodes. These are not significantly changed when compared to the prior study. The inferior pole of the left lobe of the thyroid has somewhat of a bulbous appearance. This finding is no different than on the prior exam. There is no discrete mass identified but if further study is desired, then ultrasound would be recommended. 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 The spleen is also borderline enlarged. The nodule associated with the left adrenal gland does seem slightly more prominent than on the prior study but is most likely a benign process. This finding could also be further evaluated by PET/CT. Impression: 1. There is no evidence for an acute cardiopulmonary abnormality. In particular, there is no sign of a pulmonary embolus or of a dissection. 2. However, in the interval since the prior exam a poorly defined low-density mass has developed in the left suprahilar region. This mass should be considered neoplastic until proven otherwise. Recommendations as above. Dictated by: Dictated on workstation # [id number]
--- NOTE | 2018-03-05 12:56 | Short Stay Summary ---
History of Present Illness History of Present Illness Reason for visit/HPI 42 yo F that presented to ER with chest pain. States that she has been having tightness in her chest for the last 10-14 days. She states that it is tight denies any sharp, dull or aching pain. She has a h/o PE several years ago when she was on control and found out that she has protein C deficiency. She states that the pain is resolved this AM. Improved with nitro in ER. States she has stress test 2 years ago with normal cath. Date of Admission Mar 05, 2018 at 00:20 Date of Discharge 03/05/2018 Time Seen by Provider: 10:15 Attending Physician Rosalee Warren MD Admitting Physician Trent Cary MD Consult Allergies and Home Medications Allergies Coded Allergies: erythromycin base (Verified Allergy, Unknown, 10/25/12) Home Medications Acetaminophen/Diphenhydramine 1 Each Tablet, 1 TAB PO HS, (Reported) Celecoxib 200 Mg Capsule, 200 MG PO HS, (Reported) Desvenlafaxine Succinate 50 Mg Tab.er.24h, 100 MG PO HS, (Reported) Gabapentin 300 Mg Capsule, 300 MG PO HS, (Reported) Nebivolol HCl 10 Mg Tab, 10 MG PO HS, (Reported) Rivaroxaban 20 Mg Tablet, 20 MG PO HS, (Reported) Patient Home Medication List Home Medication List Reviewed: Yes Past Uumwbtt-Yvfuoz-Fzjbqe Hx Patient Social History Living Status: Lives in house with Alcohol Use: Denies Use Recreational Drug Use: No Smoking Status: Never a Smoker Physical Abuse Screen: No Sexual Abuse: No Recent Foreign Travel: No Contact w/other who traveled: No Recent Hopitalizations: No Recent Infectious Disease Expo: No Immunizations Up To Date Date of Pneumonia Vaccine: Oct 05, 2012 Date of Influenza Vaccine: Oct 05, 2012 Seasonal Allergies Seasonal Allergies: No Surgeries Yes (ECTOPIC -OVARIAN RUPTURE FOLLOWED BY HYST/BSO; ENDOMETRIAL ABLATION; LAPAROTOMY; VENA CAVA FILTER; KNEE SCOPES X 3--2 ON RIGHT, 1 ON LEFT; CARDIAC CATH 04/2016--NO INTERVENTION) Cardiac, Hysterectomy, Oophorectomy, Orthopedic, Tonsillectomy, Vascular Surgery Respiratory Yes (MULTIPLE PE'S 2007--VENA CAVA FILTER IN PLACE ) Currently Using CPAP: No Currently Using BIPAP: No Cardiovascular Yes (ABNORMAL NUCLEAR STRESS TEST WITH NORMAL CARDIAC CATH 04/2016; MILD MR/TR; MILD LEFT ATRIAL DILATION ; MILD DIASTOLIC DYSFUNCTION. 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 ) Adverse Reaction to a Blood Tr: No Family Medical History Significant Family History: No Pertinent Family Hx Constitutional: No chills, No fever; malaise EENTM: no symptoms reported; No blurred vision, No double vision, No mouth pain , No nose congestion, No nose pain Respiratory: no symptoms reported; No cough, No dyspnea on exertion, No orthopnea, No short of breath Cardiovascular: chest pain; No edema, No palpitations Gastrointestinal: no symptoms reported; No abdominal pain, No constipation, No diarrhea, No loss of appetite, No nausea, No vomiting Genitourinary: no symptoms reported; No dysuria, No frequency, No hematuria : No Musculoskeletal: no symptoms reported; No back pain, No joint pain, No muscle pain Skin: no symptoms reported; No lesions, No rash Psychiatric/Neurological: Anxiety; Denies Depressed, Denies Headache, Denies Numbness, Denies Weakness Physical Exam Vital Signs Vital Signs - First Documented 03/04/18 03/05/18 21:38 04:06 Temp 100.0 Pulse 117 Resp 20 B/P (MAP) 149/76 (100) Pulse Ox 95 O2 Delivery Room Air O2 Flow Rate 2.00 Capillary Refill : Less Than 3 Seconds General Appearance: No Apparent Distress, WD/WN HEENT: PERRL/EOMI, Normal ENT Inspection Neck: Full Range of Motion, Normal Inspection, Non Tender, Supple Respiratory: Chest Non Tender, Lungs Clear, Normal Breath Sounds, No Accessory Muscle Use, No Respiratory Distress Cardiovascular: Regular Rate, Rhythm, No Edema, No Murmur, Normal Peripheral Pulses Gastrointestinal: Normal Bowel Sounds, No Organomegaly, Non Tender, Soft Back: No CVA Tenderness Extremity: Normal Capillary Refill, Non Tender, No Calf Tenderness, No Pedal Edema Neurologic/Psychiatric: Alert, Oriented x3, No Motor/Sensory Deficits, Normal Mood/Affect, pattern maker II-XII Norm as Tested Skin: Normal Color, Warm/Dry Lymphatic: No Adenopathy Clinical Quality Measures AMI/AHF: ASA po Prior to arrival: No DVT/VTE Risk/Contraindication: Risk Factor Score Per Nursin RFS Level Per Nursing on Admit: 4+=Very High Short Stay Diagnosis Discharge Diagnosis-Short Stay Admission Diagnosis: Atypical chest pain Sub Acute Hyperthyroidism Lactic Acidosis H/o PE Final Discharge Diagnosis: See Above Conclusion Labs Laboratory Tests 03/04/18 21:55: White Blood Count 10.6, Red Blood Count 4.07L, Hemoglobin 12.9, Hematocrit 37, Mean Corpuscular Volume 92, Mean Corpuscular Hemoglobin 32, Mean Corpuscular Hemoglobin Concent 35, Red Cell Distribution Width 12.7, Platelet Count 308, Mean Platelet Volume 9.3, Neutrophils (%) (Auto) 73, Lymphocytes (%) (Auto) 21, Monocytes (%) (Auto) 6, Eosinophils (%) (Auto) 1, Basophils (%) (Auto) 0, Neutrophils # (Auto) 7.7, Lymphocytes # (Auto) 2.2, Monocytes # (Auto) 0.6, Eosinophils # (Auto) 0.1, Basophils # (Auto) 0.0, Prothrombin Time 13.6, INR Comment 1.0, Activated Partial Thromboplast Time 27, Sodium Level 139, Potassium Level 3.7, Chloride Level 105, Carbon Dioxide Level 21, Anion Gap 13, Blood Urea Nitrogen 11, Creatinine 0.77, Estimat Glomerular Filtration Rate > 60 , BUN/Creatinine Ratio 14, Glucose Level 180H, Lactic Acid Level 2.43*H, Calcium Level 9.6, Magnesium Level 2.1, Total Bilirubin 0.5, Aspartate Amino Transf (AST/SGOT) 50H, Alanine Aminotransferase (ALT/SGPT) 81H, Alkaline Phosphatase 54, Total Creatine Kinase 45, Creatine Kinase MB 0.3, Troponin I < 0.30, B-Type Natriuretic Peptide 14.5, Total Protein 7.1, Albumin 4.2, Amylase Level 47, Lipase 49, Free Thyroxine 0.94, TSH [place] Testing 0.29L 03/04/18 23:50: Lactic Acid Level 1.32 03/05/18 05:05: White Blood Count 7.5, Red Blood Count 3.88L, Hemoglobin 12.2, Hematocrit 36, Mean Corpuscular Volume 93, Mean Corpuscular Hemoglobin 31, Mean Corpuscular Hemoglobin Concent 34, Red Cell Distribution Width 12.9, Platelet Count 271, Mean Platelet Volume 9.4, Neutrophils (%) (Auto) 65, Lymphocytes (%) (Auto) 27, Monocytes (%) (Auto) 8, Eosinophils (%) (Auto) 1, Basophils (%) (Auto) 0, Neutrophils # (Auto) 4.8, Lymphocytes # (Auto) 2.0, Monocytes # (Auto) 0.6, Eosinophils # (Auto) 0.1, Basophils # (Auto) 0.0, Sodium Level 140, Potassium Level 4.0, Chloride Level 108H, Carbon Dioxide Level 22, Anion Gap 10, Blood Urea Nitrogen 10, Creatinine 0.64, Estimat Glomerular Filtration Rate > 60, BUN/ Creatinine Ratio 16, Glucose Level 111H, Calcium Level 9.2, Total Bilirubin 0.6 , Aspartate Amino Transf (AST/SGOT) 36H, Alanine Aminotransferase (ALT/SGPT) 67H , Alkaline Phosphatase 49, Total Creatine Kinase 34, Troponin I < 0.30, Total Protein 6.4, Albumin 3.8, Myoglobin 15.7, Triglycerides Level 79, Cholesterol Level 170, LDL Cholesterol Direct 128, VLDL Cholesterol 16, HDL Cholesterol 38L Conclusion/Plan 42 yo F that presents with chest pain Atypical Chest pain - H/o PE, Neg CTA for PE or PNA - CE neg x 3 - Normal ECG - Outpatient follow up with Dr Baumann next week Sub Acute Hyperthyroidism - Outpatient follow up Lactic Acidosis - Resolved in AM Will have close follow up with PCP at [facility] and Cardiology ROSALEE WARREN MD Mar 05, 2018 12:56
--- NOTE | 2018-03-05 14:50 | Discharge Instructions ---
Discharge Inst-[facility] Discharge Medications New, Converted or Re-Newed RX: Other (No New meds) Continued Medications: Acetaminophen/Diphenhydramine (Tylenol Pm Ex-Strength Caplet) 1 Each Tablet 1 TAB PO HS, TAB Celecoxib (Celebrex) 200 Mg Capsule 200 MG PO HS, CAP Desvenlafaxine Succinate (Pristiq ER) 50 Mg Tab.er.24h 100 MG PO HS, TAB Gabapentin (Gabapentin) 300 Mg Capsule 300 MG PO HS, CAP Nebivolol HCl (Bystolic) 10 Mg Tab 10 MG PO HS, TAB Rivaroxaban (Xarelto) 20 Mg Tablet 20 MG PO HS, TAB Patient Instructions Goal/Follow Up Appt: - You have a follow up appt with Gladys Ferrer on March 10 @ 120 PM for hospital followup - Next week follow up with Dr Baumann Patient Instructions: - Make sure to take it easy this week Return to The [facility] For: - Return of chest pain - Shortness of breath Activity & Diet Discharge Diet: No Restrictions Activity as Tolerated: Yes KHADIJAH ESTEVEZ MD Mar 05, 2018 1:02 pm
--- OUTSIDE RECORDS SUMMARY | 2018-03-08 15:33 | XMS REPORT | Continuity of Care Document ---
Author Author [facility] Address Unknown Phone Unavailable Allergies Active Description Code Type Severity Reaction Onset Reported/Identified Relationship to Patient Clinical Status Yes Erythromycin Base [id number] Drug Allergy Unknown N/A 10/25/2012 Yes erythromycin base Drug Allergy N/A N/A 10/10/2014 Medications There is no data. 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 08/27/1600 MARCUS BOURGEOIS Ot Z86.718 PERSONAL HISTORY OF OTHER VENOUS THROMBO 02/23/2011 Ot V58.61 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S,LT,CURRENT USE 02/23/2011 Ot V58.83 ENCOUNTER FOR THERAPEUTIC DRUG MONITORIN 07/09/2011 Ot 346.90 MIGRAINE UNSPECIFIED W/O INTRACT MGRN W/ 07/09/2011 Ot 784.0 HEADACHE 08/17/2011 Ot 401.9 HYPERTENSION NOS 08/17/2011 Ot 568.81 HEMOPERITONEUM 08/17/2011 Ot 620.2 OVARIAN CYST NEC/NOS 08/19/2011 Ot 998.11 HEMOR COMPLIC A PROCEDURE 08/19/2011 Ot 998.32 DISRUPTION OF EXTERNAL OPERATION (SURGIC 08/19/2011 Ot V58.61 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S,LT,CURRENT USE 10/29/2011 Ot 289.81 PRIMARY HYPERCOAGULABLE STATE 10/29/2011 Ot 780.79 OTH MALAISE FATIGUE 10/29/2011 Ot 786.02 ORTHOPNEA 10/29/2011 Ot V12.51 HX-VENOUS THROMBOSIS EMBOLISM 10/29/2011 Ot V58.61 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S,LT,CURRENT USE 10/29/2011 Ot V58.69 OTH MED,LT, CURRENT USE 02/01/2012 Ot V58.61 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S,LT,CURRENT USE 02/01/2012 Ot V58.83 ENCOUNTER FOR THERAPEUTIC DRUG MONITORIN 05/31/2012 Ot V58.61 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S,LT,CURRENT USE 05/31/2012 Ot V58.83 ENCOUNTER FOR THERAPEUTIC DRUG MONITORIN 10/26/2012 Ot 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 10/26/2012 Ot 401.9 HYPERTENSION NOS 10/26/2012 Ot 599.0 URIN TRACT INFECTION NOS 10/26/2012 Ot 599.71 GROSS HEMATURIA 10/26/2012 Ot 787.01 NAUSEA WITH VOMITING 10/26/2012 Ot 789.01 ABDOMINAL PAIN, RIGHT UPPER QUADRANT 10/26/2012 Ot 790.92 COAGULATION PROFILE, ABNORMAL 10/26/2012 Ot E934.2 ADV EFF 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S 10/26/2012 Ot V03.82 PROPHYLACTIC VACC AGAINST STREPTOCOCCUS 10/26/2012 Ot V04.81 ND FOR PROPHYLACTIC VACCIN AND INOCULATI 10/26/2012 Ot V12.51 HX-VENOUS THROMBOSIS EMBOLISM 10/26/2012 Ot V12.55 PERSONAL HISTORY OF PULMONARY EMBOLISM 10/28/2012 Ot 535.50 UNSP GASTRITIS GASTRODUODENITIS W/O ME 10/31/2012 Ot V58.61 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S,LT,CURRENT USE 10/31/2012 Ot V58.83 ENCOUNTER FOR THERAPEUTIC DRUG MONITORIN 12/04/2012 Ot 401.9 HYPERTENSION NOS 12/04/2012 Ot 620.2 OVARIAN CYST NEC/NOS 12/04/2012 Ot 621.8 DISORDERS OF UTERUS NEC 12/04/2012 Ot 625.9 FEM GENITAL SYMPTOMS NOS 12/04/2012 Ot 626.2 EXCESSIVE MENSTRUATION 12/04/2012 Ot V12.51 HX-VENOUS THROMBOSIS EMBOLISM 12/04/2012 Ot V12.55 PERSONAL HISTORY OF PULMONARY EMBOLISM 12/04/2012 Ot V45.77 ACQRD ABSENCE OF GENITAL ORGANS 12/04/2012 Ot V58.61 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S,LT,CURRENT USE 12/21/2012 Ot 112.1 CANDIDAL VULVOVAGINITIS 12/21/2012 Ot 599.0 URIN TRACT INFECTION NOS 12/21/2012 Ot 789.03 ABDOMINAL PAIN, RIGHT LOWER QUADRANT 02/20/2013 MARCUS BOURGEOIS Ot V58.61 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S,LT,CURRENT USE 02/20/2013 MARCUS BOURGEOIS Ot V58.83 ENCOUNTER FOR THERAPEUTIC DRUG MONITORIN 05/24/2013 MARCUS BOURGEOIS N Ot V58.61 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S,LT,CURRENT USE 05/24/2013 MARCUS BOURGEOIS N Ot V58.83 ENCOUNTER FOR THERAPEUTIC DRUG MONITORIN 09/04/2013 MARCUS BOURGEOIS N Ot V58.61 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S,LT,CURRENT USE 09/04/2013 CHRISTELLEMARCUS DUPREE N Ot V58.83 ENCOUNTER FOR THERAPEUTIC DRUG MONITORIN 04/30/2014 MARCUS BOURGEOIS N Ot V58.61 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S,LT,CURRENT USE 04/30/2014 MARCUS BOURGEOIS N Ot V58.83 ENCOUNTER FOR THERAPEUTIC DRUG MONITORIN 08/10/2014 MARCUS BOURGEOIS N Ot V58.61 08/10/2014 CHRISTELLE MARCUS N Ot V58.83 09/04/2014 MARCUS BOURGEOIS N Ot V58.61 09/04/2014 CHRISTELLE JENSZOILA N Ot V58.83 10/10/2014 AMARI MARTINEZ [place] S 401.1 HYPERTENSION, BENIGN ESSENTIAL 10/10/2014 AMARI MARTINEZ [place] S 780.79 FATIGUE 10/10/2014 AMARI MARTINEZ, [place] S V18.0 FAMILY HISTORY OF DIABETES MELLITUS 10/10/2014 AMARI MRATINEZ, [place] S V70.0 EXAM - ROUTINE H&P 10/10/2014 AMARI MARTINEZ [place] S 401.1 HYPERTENSION, BENIGN ESSENTIAL 10/10/2014 AMARI MARTINEZ, [place] S 780.79 FATIGUE 10/10/2014 AMARI MARTINEZ, [place] S V18.0 FAMILY HISTORY OF DIABETES MELLITUS 10/10/2014 AMARI MARTINEZ, [place] S V70.0 EXAM - ROUTINE H&P 10/10/2014 AMARI MARTINEZ, [place] S 401.1 HYPERTENSION, BENIGN ESSENTIAL 10/10/2014 AMARI MARTINEZ, [place] S 780.79 FATIGUE 10/10/2014 AMARI MARTINEZ, [place] S V18.0 FAMILY HISTORY OF DIABETES MELLITUS 10/10/2014 AMARI MARTINEZ [place] S V70.0 EXAM - ROUTINE H&P 10/10/2014 CHRISTELLE JENSZOILA N Ot V58.61 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S,LT,CURRENT USE 10/10/2014 CHRISTELLE, BOBAN N Ot V58.83 ENCOUNTER FOR THERAPEUTIC DRUG MONITORIN 10/13/2014 AMARI MARTINEZ [place] S 790.29 HYPERGLYCEMIA 10/13/2014 AMARI MARTINEZ, [place] S 790.29 HYPERGLYCEMIA 10/13/2014 AMARI OBJECT ORIENTED PROGRAMMER, [place] S 790.29 HYPERGLYCEMIA 10/16/2014 CHRISTELLE, JENSAN N Ot V58.61 10/16/2014 CHRISTELLE, BOBAN N Ot V58.83 10/17/2014 CHRISTELLE, BOBAN N Ot V58.61 10/17/2014 CHRISTELLE, BOBAN N Ot V58.83 10/25/2014 CATRACHO FITZPATRICK APRNNDA S 278.00 OBESITY 10/25/2014 AMARI MARTINEZ [place] S 278.00 OBESITY 11/16/2014 CHRISTELLEMARCUS N Ot V58.61 11/16/2014 CHRISTELLE, BOBAN N Ot V58.83 01/14/2015 CHRISTELLE, BOBAN N Ot V58.61 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S,LT,CURRENT USE 01/14/2015 CHRISTELLE, BOBAN N Ot V58.83 ENCOUNTER FOR THERAPEUTIC DRUG MONITORIN 01/23/2015 CHRISTELLE, BOBAN N Ot V58.61 01/23/2015 CHRISTELLE, BOBAN N Ot V58.83 01/23/2015 CHRISTELLE, BOBAN N Ot V58.61 01/23/2015 CHRISTELLE, BOBAN N Ot V58.83 01/24/2015 CHRISTELLE, BOBAN N Ot V58.61 01/24/2015 CHRISTELLE, BOBAN N Ot V58.83 02/24/2015 YUNI MASSEY CRANE HOIST OR LIFT OPERATOR Ot 289.81 02/24/2015 YUNI MASSEY CRANE HOIST OR LIFT OPERATOR Ot V12.51 02/24/2015 YUNI MASSEY CRANE HOIST OR LIFT OPERATOR Ot V12.55 02/24/2015 YUNI MASSEY CRANE HOIST OR LIFT OPERATOR Ot V58.61 02/24/2015 YUNI MASSEY CRANE HOIST OR LIFT OPERATOR Ot V58.69 03/22/2015 CHRISTELLE BOBAN N Ot V58.61 03/22/2015 CHRISTELLE, BOBAN N Ot V58.83 04/23/2015 CHRISTELLE, BOBAN N Ot V58.61 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S,LT,CURRENT USE 04/23/2015 CHRISTELLE, BOBAN N Ot V58.83 ENCOUNTER FOR THERAPEUTIC DRUG MONITORIN 07/26/2015 JENS BOURGEOISZOILA N Ot V58.61 07/26/2015 CHRISTELLE, MARCUS N Ot V58.83 09/13/2015 CHRISTELLE, MARCUS N Ot V58.61 09/13/2015 CHRISTELLE, MARCUS N Ot V58.83 09/25/2015 CHRISTELLE, MARCUS N Ot D68.59 09/25/2015 CHRISTELLE, MARCUS N Ot V58.61 09/25/2015 CHRISTELLE, MARCUS N Ot V58.83 09/25/2015 CHRISTELLE, MARCUS N Ot Z79.01 09/25/2015 CHRISTELLE, MARCUS N Ot Z86.711 09/25/2015 CHRISTELLEMARCUS N Ot Z86.718 10/31/2015 CHRISTELLEMARCUS N Ot 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 10/31/2015 MARCUS BOURGEOIS N Ot 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 10/31/2015 MARCUS BOURGEOIS N Ot Z86.711 PERSONAL HISTORY OF PULMONARY EMBOLISM 10/31/2015 MARCUS BOURGEOIS N Ot Z86.718 PERSONAL HISTORY OF OTHER VENOUS THROMBO 11/19/2015 CHRISTELLEMARCUS N Ot D68.59 11/19/2015 CHRISTELLEMARCUS N Ot Z79.01 11/19/2015 CHRISTELLEMARCUS N Ot Z86.711 11/19/2015 CHRISTELLEMARCUS N Ot Z86.718 11/26/2015 CHRISTELLEMARCUS N Ot D68.59 11/26/2015 CHRISTELLEMARCUS N Ot Z79.01 11/26/2015 CHRISTELLEMARCUS N Ot Z86.711 11/26/2015 CHRISTELLEJENSAN N Ot Z86.718 12/12/2015 CHRISTELLEJENSAN N Ot D68.59 12/12/2015 CHRISTELLEMARCUS N Ot Z79.01 12/12/2015 CHRISTELLEMARCUS N Ot Z86.711 12/12/2015 CHRISTELLEMARCUS N Ot Z86.718 02/14/2016 CHRISTELLEMARCUS N Ot 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 02/14/2016 MARCUS BOURGEOIS N Ot 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 02/14/2016 MARCUS BOURGEOIS Ot Z86.711 PERSONAL HISTORY OF PULMONARY EMBOLISM 02/14/2016 MARCUS BOURGEOIS Ot Z86.718 PERSONAL HISTORY OF OTHER VENOUS THROMBO 05/13/2016 Ot V58.61 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S,LT,CURRENT USE 05/13/2016 Ot V58.83 ENCOUNTER FOR THERAPEUTIC DRUG MONITORIN 05/13/2016 Ot 397.0 TRICUSPID VALVE DISEASE 05/13/2016 Ot 424.0 MITRAL VALVE DISORDER 05/13/2016 Ot 786.02 ORTHOPNEA 05/13/2016 Ot 786.05 SHORTNESS OF BREATH 05/13/2016 Ot 272.4 HYPERLIPIDEMIA NEC/NOS 05/13/2016 Ot 787.02 NAUSEA ALONE 05/13/2016 Ot 787.91 DIARRHEA 05/13/2016 Ot 789.01 ABDOMINAL PAIN, RIGHT UPPER QUADRANT 05/13/2016 Ot 787.02 NAUSEA ALONE 05/13/2016 Ot 789.01 ABDOMINAL PAIN, RIGHT UPPER QUADRANT 05/13/2016 Ot 625.8 FEM GENITAL SYMPTOMS NEC 05/13/2016 Ot 787.01 NAUSEA WITH VOMITING 05/13/2016 Ot 787.91 DIARRHEA 05/13/2016 Ot 789.00 ABDOMINAL PAIN, UNSPECIFIED SITE 05/13/2016 Ot V72.84 EXAM PRE- OPERATIVE NOS 05/13/2016 Ot 599.70 HEMATURIA, UNSPECIFIED 05/13/2016 Ot 620.2 OVARIAN CYST NEC/NOS 05/13/2016 Ot 625.9 FEM GENITAL SYMPTOMS NOS 05/13/2016 Ot 626.2 EXCESSIVE MENSTRUATION 05/13/2016 Ot V58.61 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S,LT,CURRENT USE 05/13/2016 Ot V72.63 PRE- PROCEDURAL LABORATORY EXAMINATION 05/13/2016 Ot V72.81 EXAM-PRE- OPERATIVE CARDIOVASCULAR 05/13/2016 Ot V74.8 SCREEN- BACTERIAL DIS NEC 05/13/2016 Ot V12.51 HX-VENOUS THROMBOSIS EMBOLISM 05/13/2016 Ot V12.55 PERSONAL HISTORY OF PULMONARY EMBOLISM 05/13/2016 YUNI MASSEY Ot 289.81 PRIMARY HYPERCOAGULABLE STATE 05/13/2016 YUNI MASSEY Ot 459.89 CIRCULATORY DISEASE NEC 05/13/2016 YUNI MASSEY Ot V12.51 HX-VENOUS THROMBOSIS EMBOLISM 05/13/2016 MASSEY, HILAH S CRANE HOIST OR LIFT OPERATOR Ot V12.55 PERSONAL HISTORY OF PULMONARY EMBOLISM 05/13/2016 YUNI MASSEY CRANE HOIST OR LIFT OPERATOR Ot V58.61 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S,LT,CURRENT USE 05/13/2016 YUNI MASSEY CRANE HOIST OR LIFT OPERATOR Ot V58.69 OTH MED,LT,CURRENT USE 05/13/2016 YUNI MASSEY CRANE HOIST OR LIFT OPERATOR Ot 289.81 PRIMARY HYPERCOAGULABLE STATE 05/13/2016 YUNI MASSEY CRANE HOIST OR LIFT OPERATOR Ot V12.51 HX-VENOUS THROMBOSIS EMBOLISM 05/13/2016 YUNI MASSEY CRANE HOIST OR LIFT OPERATOR Ot V12.55 PERSONAL HISTORY OF PULMONARY EMBOLISM 05/13/2016 YUNI MASSEY CRANE HOIST OR LIFT OPERATOR Ot V58.61 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S,LT,CURRENT USE 05/13/2016 YUNI MASSEY CRANE HOIST OR LIFT OPERATOR Ot V58.69 OTH MED,LT,CURRENT USE 05/13/2016 MARCUS BOURGEOIS Ot 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 05/13/2016 MARCUS BOURGEOIS Ot 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 05/13/2016 MARCUS BOURGEOIS Ot Z86.711 PERSONAL HISTORY OF PULMONARY EMBOLISM 05/13/2016 MARCUS BOURGEOIS Ot Z86.718 PERSONAL HISTORY OF OTHER VENOUS THROMBO 05/13/2016 FLETCHER PROCTOR MD Ot I51.7 CARDIOMEGALY 05/13/2016 FLETCHER PROCTOR MD Ot K76.0 FATTY (CHANGE OF) LIVER, NOT ELSEWHERE C 05/13/2016 FLETCHER PROCTOR MD Ot R07.9 CHEST PAIN, UNSPECIFIED 05/13/2016 FLETCHER PROCTOR MD Ot R91.1 SOLITARY PULMONARY NODULE 05/15/2016 FLETCHER PROCTOR MD Ot I51.7 CARDIOMEGALY 05/15/2016 FLETCHER PROCTOR MD Ot K76.0 FATTY (CHANGE OF) LIVER, NOT ELSEWHERE C 05/15/2016 FLETCHER PROCTOR MD Ot R07.9 CHEST PAIN, UNSPECIFIED 05/15/2016 FLETCHER PROCTOR MD Ot R91.1 SOLITARY PULMONARY NODULE 05/24/2016 SIGIFREDO JEAN BAPTISTE MD Ot 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 05/24/2016 SIGIFREDO JEAN BAPTISTE MD Ot I10 ESSENTIAL (PRIMARY) HYPERTENSION 05/24/2016 SIGIFREDO JEAN BAPTISTE MD Ot I25.10 ATHSCL HEART DISEASE OF [place] CORONARY 05/24/2016 SIGIFREDO JEAN BAPTISTE MD Ot I82.91 CHRONIC EMBOLISM AND THROMBOSIS OF [place] 05/24/2016 SIGIFREDO JEAN BAPTISTE MD Ot R07.89 OTHER CHEST PAIN 05/24/2016 SIGIFREDO JEAN BAPTISTE MD Ot R94.39 ABNORMAL RESULT OF OTHER CARDIOVASCULAR 05/24/2016 SIGIFREDO JEAN BAPTISTE MD Ot 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 05/24/2016 SIGIFREDO JEAN BAPTISTE MD Ot Z79.899 OTHER ASSISTED (CURRENT) DRUG THERAPY 05/25/2016 YUKO RODNEY MD Ot R07.89 OTHER CHEST PAIN 05/26/2016 YUKO RODNEY MD Ot R07.89 OTHER CHEST PAIN 05/27/2016 MARCUS BOURGEOIS Ot 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 05/27/2016 MARCUS BOURGEOIS Ot 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 05/27/2016 MARCUS BOURGEOIS Ot Z86.711 PERSONAL HISTORY OF PULMONARY EMBOLISM 05/27/2016 MARCUS BOURGEOIS Ot Z86.718 PERSONAL HISTORY OF OTHER VENOUS THROMBO 06/06/2016 YUKO RODNEY MD Ot R07.89 OTHER CHEST PAIN 06/06/2016 SIGIFREDO JEAN BAPTISTE MD Ot 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 06/06/2016 SIGIFREDO JEAN BAPTISTE MD Ot I10 ESSENTIAL (PRIMARY) HYPERTENSION 06/06/2016 SIGIFREDO JEAN BAPTISTE MD Ot I25.10 ATHSCL HEART DISEASE OF [place] CORONARY 06/06/2016 SIGIFREDO JEAN BAPTISTE MD Ot I82.91 CHRONIC EMBOLISM AND THROMBOSIS OF [place] 06/06/2016 SIGIFREDO JEAN BAPTISTE MD Ot R07.89 OTHER CHEST PAIN 06/06/2016 SIGIFREDO JEAN BAPTISTE MD Ot R94.39 ABNORMAL RESULT OF OTHER CARDIOVASCULAR 06/06/2016 SIGIFREDO JEAN BAPTISTE MD Ot 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 06/06/2016 SIGIFREDO JEAN BAPTISTE MD Ot Z79.899 OTHER ASSISTED (CURRENT) DRUG THERAPY 06/09/2016 SIGIFREDO JEAN BAPTISTE MD Ot 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 06/09/2016 SIGIFREDO JEAN BAPTISTE MD Ot I10 ESSENTIAL (PRIMARY) HYPERTENSION 06/09/2016 SIGIFREDO JEAN BAPTISTE MD Ot I25.10 ATHSCL HEART DISEASE OF [place] CORONARY 06/09/2016 SIGIFREDO JEAN BAPTISTE MD Ot I82.91 CHRONIC EMBOLISM AND THROMBOSIS OF [place] 06/09/2016 SIGIFREDO JEAN BAPTISTE MD Ot R07.89 OTHER CHEST PAIN 06/09/2016 SIGIFREDO JEAN BAPTISTE MD Ot R94.39 ABNORMAL RESULT OF OTHER CARDIOVASCULAR 06/09/2016 SIGIFREDO JEAN BAPTISTE MD, Ot Z79.01 ASSISTED (CURRENT) USE OF 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 06/09/2016 SIGIFREDO JEAN BAPTISTE MD Ot Z79.899 OTHER MAGNETIC GRINDER OPERATOR (CURRENT) DRUG THERAPY 06/11/2016 MARCUS BOURGEOIS Ot 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 06/11/2016 MARCUS BOURGEOIS Ot Z79.01 ASSISTED (CURRENT) USE OF 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 06/11/2016 MARCUS BOURGEOIS Ot Z86.711 PERSONAL HISTORY OF PULMONARY EMBOLISM 06/11/2016 MARCUS BOURGEOIS N Ot Z86.718 PERSONAL HISTORY OF OTHER VENOUS THROMBO 07/04/2016 MARCUS BOURGEOIS Ot 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 07/04/2016 MARCUS BOURGEOIS Ot Z79.01 ASSISTED (CURRENT) USE OF 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 07/04/2016 MARCUS BOURGEOIS N Ot Z86.711 PERSONAL HISTORY OF PULMONARY EMBOLISM 07/04/2016 MARCUS BOURGEOIS N Ot Z86.718 PERSONAL HISTORY OF OTHER VENOUS THROMBO 07/16/2016 MARCUS BOURGEOIS Ot 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 07/16/2016 MARCUS BOURGEOIS N Ot 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 07/16/2016 MARCUS BOURGEOIS N Ot Z86.711 PERSONAL HISTORY OF PULMONARY EMBOLISM 07/16/2016 MARCUS BOURGEOIS N Ot Z86.718 PERSONAL HISTORY OF OTHER VENOUS THROMBO 08/13/2016 MARCUS BOURGEOIS Ot 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 08/13/2016 MARCUS BOURGEOIS Ot 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 08/13/2016 MARCUS BOURGEOIS N Ot Z86.711 PERSONAL HISTORY OF PULMONARY EMBOLISM 08/13/2016 MARCUS BOURGEOIS Ot Z86.718 PERSONAL HISTORY OF OTHER VENOUS THROMBO 10/13/2016 MARCUS BOURGEOIS Ot 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 10/13/2016 MARCUS BOURGEOIS Ot 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 10/13/2016 MARCUS BUORGEOIS Ot Z86.711 PERSONAL HISTORY OF PULMONARY EMBOLISM 10/13/2016 MARCUS BOURGEOIS Ot Z86.718 PERSONAL HISTORY OF OTHER VENOUS THROMBO 10/14/2016 MARCUS BOURGEOIS Ot 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 10/14/2016 MARCUS BOURGEOIS Ot 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 10/14/2016 MARCUS BOURGEOIS Ot Z86.711 PERSONAL HISTORY OF PULMONARY EMBOLISM 10/14/2016 MARCUS BOURGEOIS Ot Z86.718 PERSONAL HISTORY OF OTHER VENOUS THROMBO 07/10/2017 MARCUS BOURGEOIS Ot 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 07/10/2017 MARCUS BOURGEOIS Ot 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 07/10/2017 MARCUS BOURGEOIS Ot Z86.711 PERSONAL HISTORY OF PULMONARY EMBOLISM 07/10/2017 MARCUS BOURGEOIS Ot Z86.718 PERSONAL HISTORY OF OTHER VENOUS THROMBO 07/10/2017 Ot V58.61 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S,LT,CURRENT USE 07/10/2017 Ot V58.83 ENCOUNTER FOR THERAPEUTIC DRUG MONITORIN 07/10/2017 Ot 787.02 NAUSEA ALONE 07/10/2017 Ot 787.91 DIARRHEA 07/10/2017 Ot 789.01 ABDOMINAL PAIN, RIGHT UPPER QUADRANT 07/10/2017 Ot 787.02 NAUSEA ALONE 07/10/2017 Ot 789.01 ABDOMINAL PAIN, RIGHT UPPER QUADRANT 07/10/2017 Ot 625.8 FEM GENITAL SYMPTOMS NEC 07/10/2017 Ot 787.01 NAUSEA WITH VOMITING 07/10/2017 Ot 787.91 DIARRHEA 07/10/2017 Ot 789.00 ABDOMINAL PAIN, UNSPECIFIED SITE 07/10/2017 Ot V72.84 EXAM PRE- OPERATIVE NOS 07/10/2017 Ot 599.70 HEMATURIA, UNSPECIFIED 07/10/2017 Ot 620.2 OVARIAN CYST NEC/NOS 07/10/2017 Ot 625.9 FEM GENITAL SYMPTOMS NOS 07/10/2017 Ot 626.2 EXCESSIVE MENSTRUATION 07/10/2017 Ot V58.61 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S,LT,CURRENT USE 07/10/2017 Ot V72.63 PRE- PROCEDURAL LABORATORY EXAMINATION 07/10/2017 Ot V72.81 EXAM-PRE- OPERATIVE CARDIOVASCULAR 07/10/2017 Ot V74.8 SCREEN- BACTERIAL DIS NEC 07/10/2017 Ot V12.51 HX-VENOUS THROMBOSIS EMBOLISM 07/10/2017 Ot V12.55 PERSONAL HISTORY OF PULMONARY EMBOLISM 07/10/2017 YUNI MASSEY CRANE HOIST OR LIFT OPERATOR Ot 289.81 PRIMARY HYPERCOAGULABLE STATE 07/10/2017 YUNI MASSEY CRANE HOIST OR LIFT OPERATOR Ot 459.89 CIRCULATORY DISEASE NEC 07/10/2017 YUNI MASSEY CRANE HOIST OR LIFT OPERATOR Ot V12.51 HX-VENOUS THROMBOSIS EMBOLISM 07/10/2017 YUNI MASSEY CRANE HOIST OR LIFT OPERATOR Ot V12.55 PERSONAL HISTORY OF PULMONARY EMBOLISM 07/10/2017 YUNI MASSEY CRANE HOIST OR LIFT OPERATOR Ot V58.61 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S,LT,CURRENT USE 07/10/2017 YUNI MASSEY CRANE HOIST OR LIFT OPERATOR Ot V58.69 OTH MED,LT,CURRENT USE 07/10/2017 YUNI MASSEY CRANE HOIST OR LIFT OPERATOR Ot 289.81 PRIMARY HYPERCOAGULABLE STATE 07/10/2017 YUNI MASSEY CRANE HOIST OR LIFT OPERATOR Ot V12.51 HX-VENOUS THROMBOSIS EMBOLISM 07/10/2017 YUNI MASSEY CRANE HOIST OR LIFT OPERATOR Ot V12.55 PERSONAL HISTORY OF PULMONARY EMBOLISM 07/10/2017 YUNI MASSEY CRANE HOIST OR LIFT OPERATOR Ot V58.61 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S,LT,CURRENT USE 07/10/2017 YUNI MASSEY CRANE HOIST OR LIFT OPERATOR Ot V58.69 OTH MED,LT,CURRENT USE 07/10/2017 MARCUS BOURGEOIS Ot 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 07/10/2017 MARCUS BOURGEOIS Ot 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 07/10/2017 MARCUS BOURGEOIS Ot Z86.711 PERSONAL HISTORY OF PULMONARY EMBOLISM 07/10/2017 MARCUS BOURGEOIS Ot Z86.718 PERSONAL HISTORY OF OTHER VENOUS THROMBO 12/08/2017 MARCUS BOURGEOIS Ot 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 12/08/2017 MARCUS BOURGEOIS Ot Z79.01 ASSISTED (CURRENT) USE OF 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 12/08/2017 MARCUS BOURGEOIS Ot Z86.711 PERSONAL HISTORY OF PULMONARY EMBOLISM 12/08/2017 MARCUS BOURGEOIS Ot Z86.718 PERSONAL HISTORY OF OTHER VENOUS THROMBO Procedures Code Description Performed By Performed On 65.25 OT LAPAROSCOP LOCAL EXCIS/ DESTRUCT OVAR 08/16/2011 65.62 OT REMOVE OF REMAIN OVA/ TUBE 12/03/2012 68.51 ASSIST VAG HYSTER(LAVH) 12/03/2012 69790 ROUTINE VENIPUNCTURE 10/13/2014 90168 CBC 10/13/2014 [id number] GFR CALC (RESULT ONLY) 10/13/2014 11538 CMP 10/13/2014 80921 LIPID PANEL 10/13/2014 02582 TSH 10/13/2014 31788 INSULIN LEVEL 10/14/2014 76928 A1C (RML) 10/18/2014 Results Test Result Range Complete blood count (CBC) with automated white blood cell (WBC) differential - 05/13/16 12:55 Blood leukocytes automated count (number/volume) 9.2 10*3/uL 4.3-11.0 Blood erythrocytes automated count (number/volume) 4.36 10*6/uL 4.35-5.85 Venous blood hemoglobin measurement (mass/volume) 13.4 g/dL 11.5-16.0 Blood hematocrit (volume fraction) 40 % 35-52 Automated erythrocyte mean corpuscular volume 92 [foz_us] 80-99 Automated erythrocyte mean corpuscular hemoglobin (mass per erythrocyte) 31 pg 25-34 Automated erythrocyte mean corpuscular hemoglobin concentration measurement ( mass/volume) 34 g/dL 32-36 Automated erythrocyte distribution width ratio 13.3 % 10.0-14.5 Automated blood platelet count (count/volume) 308 10*3/uL 130-400 Automated blood platelet mean volume measurement 9.1 [foz_us] 7.4-10.4 Automated blood neutrophils/100 leukocytes 68 % 42-75 Automated blood lymphocytes/100 leukocytes 25 % 12-44 Blood monocytes/100 leukocytes 6 % 0-12 Automated blood eosinophils/100 leukocytes 1 % 0-10 Automated blood basophils/100 leukocytes 0 % 0-10 Blood neutrophils automated count (number/volume) 6.3 10*3 1.8-7.8 Blood lymphocytes automated count (number/volume) 2.3 10*3 1.0-4.0 Blood monocytes automated count (number/volume) 0.5 10*3 0.0-1.0 Automated eosinophil count 0.1 10*3/uL 0.0-0.3 Automated blood basophil count (count/volume) 0.0 10*3/uL 0.0-0.1 PT panel in platelet poor plasma by coagulation assay - 05/13/16 12:55 Prothrombin time (PT) in platelet poor plasma by coagulation assay 32.3 s 12.2-14.7 INR in platelet poor plasma or blood by coagulation assay 3.2 0.8-1.4 Activated partial thromboplastin time (aPTT) in platelet poor plasma bycoagulation assay - 05/13/16 12:55 Activated partial thromboplastin time (aPTT) in platelet poor plasma bycoagulation assay 45 s 24-35 Comprehensive metabolic panel - 05/13/16 12:55 Serum or plasma sodium measurement (moles/volume) 141 mmol/L 135-145 Serum or plasma potassium measurement (moles/volume) 4.0 mmol/L 3.6-5.0 Serum or plasma chloride measurement (moles/volume) 108 mmol/L 98-107 Carbon dioxide 24 mmol/L 21-32 Serum or plasma anion gap determination (moles/volume) 9 mmol/L 5-14 Serum or plasma urea nitrogen measurement (mass/volume) 13 mg/dL 7-18 Serum or plasma creatinine measurement (mass/volume) 0.71 mg/dL 0.60-1.30 Serum or plasma urea nitrogen/creatinine mass ratio 18 NRG Serum or plasma creatinine measurement with calculation of estimated glomerular filtration rate > NRG Serum or plasma glucose measurement (mass/volume) 115 mg/dL 70-105 Serum or plasma calcium measurement (mass/volume) 9.5 mg/dL 8.5-10.1 Serum or plasma total bilirubin measurement (mass/volume) 0.5 mg/dL 0.1-1.0 Serum or plasma alkaline phosphatase measurement (enzymatic activity/volume) 48 U/L 40-136 Serum or plasma aspartate aminotransferase measurement (enzymatic activity/ volume) 17 U/L 5-34 Serum or plasma alanine aminotransferase measurement (enzymatic activity/volume ) 26 U/L 0-55 Serum or plasma protein measurement (mass/volume) 6.5 g/dL 6.4-8.2 Serum or plasma albumin measurement (mass/volume) 4.2 g/dL 3.2-4.5 Magnesium - 05/13/16 12:55 Magnesium 2.1 mg/dL 1.8-2.4 Serum or plasma troponin i.cardiac measurement (mass/volume) - 05/13/16 12:55 Serum or plasma troponin i.cardiac measurement (mass/volume) < ng/ mL <0.30 Myoglobin, serum - 05/13/16 12:55 Myoglobin, serum 24.3 ng/mL 10.0-92.0 Complete urinalysis with reflex to culture - 05/23/16 07:34 Urine color determination YELLOW NRG Urine clarity determination SLIGHTLY CLOUDY NRG Urine pH measurement by test strip 6 5-9 Specific gravity of urine by test strip 1.025 1.016- 1.022 Urine protein assay by test strip, semi-quantitative 1+ NEGATIVE Urine glucose detection by automated test strip NEGATIVE NEGATIVE Erythrocytes detection in urine sediment by light microscopy 2+ NEGATIVE Urine ketones detection by automated test strip NEGATIVE NEGATIVE Urine nitrite detection by test strip NEGATIVE NEGATIVE Urine total bilirubin detection by test strip NEGATIVE NEGATIVE Urine urobilinogen measurement by automated test strip (mass/volume) NORMAL NORMAL Urine leukocyte esterase detection by dipstick 1+ NEGATIVE Automated urine sediment erythrocyte count by microscopy (number/high power field) [HPF] NRG Automated urine sediment leukocyte count by microscopy (number/high power field ) [HPF] NRG Bacteria detection in urine sediment by light microscopy MODERATE NRG Squamous epithelial cells detection in urine sediment by light microscopy 2-5 NRG Crystals detection in urine sediment by light microscopy NONE NRG Casts detection in urine sediment by light microscopy NONE NRG Mucus detection in urine sediment by light microscopy NEGATIVE NRG Complete urinalysis with reflex to culture YES NRG PT panel in platelet poor plasma by coagulation assay - 05/23/16 07:34 Prothrombin time (PT) in platelet poor plasma by coagulation assay 19.5 s 12.2-14.7 INR in platelet poor plasma or blood by coagulation assay 1.7 0.8-1.4 Activated partial thromboplastin time (aPTT) in platelet poor plasma bycoagulation assay - 05/23/16 07:34 Activated partial thromboplastin time (aPTT) in platelet poor plasma bycoagulation assay 32 s 24-35 Bacterial urine culture - 05/23/16 07:34 URINE CULTURE RESULTS <10,000/ML [facility] Comprehensive metabolic panel - 05/23/16 07:44 Serum or plasma sodium measurement (moles/volume) 141 mmol/L 135-145 Serum or plasma potassium measurement (moles/volume) 3.9 mmol/L 3.6-5.0 Serum or plasma chloride measurement (moles/volume) 108 mmol/L 98-107 Carbon dioxide 20 mmol/L 21-32 Serum or plasma anion gap determination (moles/volume) 13 mmol/L 5-14 Serum or plasma urea nitrogen measurement (mass/volume) 15 mg/dL 7-18 Serum or plasma creatinine measurement (mass/volume) 0.68 mg/dL 0.60-1.30 Serum or plasma urea nitrogen/creatinine mass ratio 22 NRG Serum or plasma creatinine measurement with calculation of estimated glomerular filtration rate > NRG Serum or plasma glucose measurement (mass/volume) 104 mg/dL 70-105 Serum or plasma calcium measurement (mass/volume) 9.3 mg/dL 8.5-10.1 Serum or plasma total bilirubin measurement (mass/volume) 0.8 mg/dL 0.1-1.0 Serum or plasma alkaline phosphatase measurement (enzymatic activity/volume) 52 U/L 40-136 Serum or plasma aspartate aminotransferase measurement (enzymatic activity/ volume) 22 U/L 5-34 Serum or plasma alanine aminotransferase measurement (enzymatic activity/volume ) 34 U/L 0-55 Serum or plasma protein measurement (mass/volume) 6.9 g/dL 6.4-8.2 Serum or plasma albumin measurement (mass/volume) 4.3 g/dL 3.2-4.5 Lipid 1996 panel - 05/23/16 07:44 Serum or plasma triglyceride measurement (mass/volume) 155 mg/dL <150 Serum or plasma cholesterol measurement (mass/volume) 205 mg/dL < 200 Serum or plasma cholesterol in HDL measurement (mass/volume) 46 mg/ dL 40-60 Cholesterol in LDL [mass/volume] in serum or plasma by direct assay 143 mg/dL 1-129 Serum or plasma cholesterol in VLDL measurement (mass/volume) 31 mg/ dL 5-40 Automated blood complete blood count (hemogram) panel - 05/23/16 07:44 Blood leukocytes automated count (number/volume) 7.4 10*3/uL 4.3-11.0 Blood erythrocytes automated count (number/volume) 4.51 10*6/uL 4.35-5.85 Venous blood hemoglobin measurement (mass/volume) 13.8 g/dL 11.5-16.0 Blood hematocrit (volume fraction) 41 % 35-52 Automated erythrocyte mean corpuscular volume 91 [foz_us] 80-99 Automated erythrocyte mean corpuscular hemoglobin (mass per erythrocyte) 31 pg 25-34 Automated erythrocyte mean corpuscular hemoglobin concentration measurement ( mass/volume) 34 g/dL 32-36 Automated erythrocyte distribution width ratio 13.5 % 10.0-14.5 Automated blood platelet count (count/volume) 307 10*3/uL 130-400 Automated blood platelet mean volume measurement 9.5 [foz_us] 7.4-10.4 Methicillin resistant Staphylococcus aureus (MRSA) screening culture - 07:44 Methicillin resistant Staphylococcus aureus (MRSA) screening culture NEG NRG Automated blood complete blood count (hemogram) panel - 05/24/16 04:21 Blood leukocytes automated count (number/volume) 6.3 10*3/uL 4.3-11.0 Blood erythrocytes automated count (number/volume) 3.94 10*6/uL 4.35-5.85 Venous blood hemoglobin measurement (mass/volume) 12.0 g/dL 11.5-16.0 Blood hematocrit (volume fraction) 37 % 35-52 Automated erythrocyte mean corpuscular volume 93 [foz_us] 80-99 Automated erythrocyte mean corpuscular hemoglobin (mass per erythrocyte) 31 pg 25-34 Automated erythrocyte mean corpuscular hemoglobin concentration measurement ( mass/volume) 33 g/dL 32-36 Automated erythrocyte distribution width ratio 13.5 % 10.0-14.5 Automated blood platelet count (count/volume) 251 10*3/uL 130-400 Automated blood platelet mean volume measurement 9.3 [foz_us] 7.4-10.4 PT panel in platelet poor plasma by coagulation assay - 05/24/16 04:21 Prothrombin time (PT) in platelet poor plasma by coagulation assay 16.5 s 12.2-14.7 INR in platelet poor plasma or blood by coagulation assay 1.4 0.8-1.4 Whole blood basic metabolic panel - 05/24/16 04:21 Serum or plasma sodium measurement (moles/volume) 142 mmol/L 135-145 Serum or plasma potassium measurement (moles/volume) 3.7 mmol/L 3.6-5.0 Serum or plasma chloride measurement (moles/volume) 111 mmol/L 98-107 Carbon dioxide 20 mmol/L 21-32 Serum or plasma anion gap determination (moles/volume) 11 mmol/L 5-14 Serum or plasma urea nitrogen measurement (mass/volume) 14 mg/dL 7-18 Serum or plasma creatinine measurement (mass/volume) 0.63 mg/dL 0.60-1.30 Serum or plasma urea nitrogen/creatinine mass ratio 22 NRG Serum or plasma creatinine measurement with calculation of estimated glomerular filtration rate > NRG Serum or plasma glucose measurement (mass/volume) 99 mg/dL 70-105 Serum or plasma calcium measurement (mass/volume) 8.9 mg/dL 8.5-10.1 [facility] - 12/02/17 08:49 GLUCOSE 122 mg/dL 65-99 UREA NITROGEN (BUN) 14 mg/dL 7-25 CREATININE 0.55 mg/dL 0.50-1.10 eGFR NON-AFR. [place] 115 mL/min/1.73m2 > OR=60 eGFR 133 mL/min/1.73m2 > OR=60 BUN/CREATININE RATIO NOT APPLICABLE (calc) 6-22 SODIUM 142 mmol/L 135-146 POTASSIUM 4.6 mmol/L 3.5-5.3 CHLORIDE 107 mmol/L 98-110 CARBON DIOXIDE 28 mmol/L 20-31 CALCIUM 9.5 mg/dL 8.6-10.2 PROTEIN, TOTAL 6.8 g/dL 6.1-8.1 ALBUMIN 4.3 g/dL 3.6-5.1 GLOBULIN 2.5 g/dL (calc) 1.9-3.7 ALBUMIN/GLOBULIN RATIO 1.7 (calc) 1.0-2.5 BILIRUBIN, TOTAL 0.4 mg/dL 0.2-1.2 ALKALINE PHOSPHATASE 50 U/L 33-115 AST 38 U/L 10-30 ALT 56 U/L 6-29 Encounters ACCT No. Visit Date/Time Discharge Status Pt. Type Provider Facility Loc./Unit Complaint [id number] 01/04/2015 16:19:00 01/04/2015 23:59:59 CLS Outpatient NAPOLEON FITZPATRICK APRN [id number] 10/25/2014 13:41:00 10/25/2014 23:59:59 CLS Outpatient NAPOLEON FITZPATRICK APRN [id number] 10/13/2014 09:38:00 10/13/2014 23:59:59 CLS Outpatient NAPOLEON FITZPATRICK APRN [id number] 12/07/2017 14:32:00 12/07/2017 23:59:59 CLS Outpatient MARCUS BOURGEOIS [facility] ONC LAB [id number] 04/09/2017 10:15:00 04/09/2017 23:59:59 CLS Preadmit NAPOLEON FITZPATRICKP [facility] RAD SCREENING Z12.31 [id number] 07/15/2016 09:48:00 10/13/2016 00:01:00 DIS Outpatient MARCUS BOURGEOIS [facility] ONC LAB [id number] 06/03/2016 14:37:00 07/04/2016 16:01:00 DIS Outpatient MARCUS BOURGEOIS [facility] ONC LAB [id number] 05/23/2016 07:12:00 05/24/2016 10:45:00 DIS Outpatient ITA PALACIOS, SIGIFREDO Bermeo [facility] CATH ABNORMAL STRESS TEST, CHEST PAIN [id number] 05/19/2016 08:40:00 05/19/2016 23:59:59 CLS Outpatient YUKO RODNEY MD [facility] CARD ATYPICAL CHEST PAIN [id number] 05/13/2016 12:38:00 05/13/2016 15:33:00 DIS Emergency FLETCHER PROCTOR MD [facility] ER RIGHT SIDE CHEST PAIN [id number] 12/03/2015 12:51:00 02/14/2016 00:01:00 DIS Outpatient MARCUS BOURGEOIS [facility] ONC LAB [id number] 08/30/2015 11:42:00 08/30/2015 23:59:59 CLS Outpatient MARCUS BOURGEOIS [facility] ONC LAB [id number] 02/07/2015 12:38:00 04/23/2015 00:01:00 DIS Outpatient MARCUS BOURGEOIS [facility] ONC LAB [id number] 01/23/2015 09:33:00 01/23/2015 23:59:59 CLS Outpatient ALBA MASSEYHERMILO Yue ALMAGUER [facility] ONC [id number] 12/26/2014 15:13:00 01/14/2015 00:01:00 DIS Outpatient MARCUS BOURGEOIS N [facility] ONC LAB [id number] 10/09/2014 13:36:00 10/10/2014 00:01:00 DIS Outpatient MARCUS BOURGEOIS N [facility] ONC LAB [id number] 01/30/2014 12:43:00 04/30/2014 00:01:00 DIS Outpatient MARCUS BOURGEOIS N [facility] ONC LAB [id number] 06/06/2013 14:40:00 09/04/2013 00:01:00 DIS Outpatient MARCUS BOURGEOIS N [facility] ONC LAB [id number] 05/17/2013 16:06:00 05/24/2013 00:01:00 DIS Outpatient MARCUS BOURGEOIS N [facility] ONC LAB [id number] 02/24/2013 09:39:00 02/24/2013 23:59:59 CLS Outpatient YUNI MASSEY [facility] ONC [id number] 01/25/2013 12:43:00 02/20/2013 00:01:00 DIS Outpatient MARCUS BOURGEOIS N [facility] ONC LAB [id number] 05/13/2016 12:38:00 Document Registration [id number] 12/21/2012 05:45:00 Document Registration [id number] 12/06/2012 11:57:00 Document Registration [id number] 12/03/2012 06:06:00 Document Registration [id number] 11/30/2012 08:06:00 Document Registration [id number] 10/28/2012 11:04:00 Document Registration [id number] 10/28/2012 10:58:00 Document Registration [id number] 10/27/2012 08:03:00 Document Registration [id number] 10/25/2012 01:50:00 Document Registration [id number] 10/22/2012 09:52:00 Document Registration [id number] 10/19/2012 14:06:00 Document Registration [id number] 10/19/2012 09:07:00 Document Registration [id number] 10/15/2012 08:03:00 Document Registration [id number] 05/18/2012 13:14:00 Document Registration [id number] 11/03/2011 14:14:00 Document Registration [id number] 09/18/2011 13:23:00 Document Registration [id number] 08/26/2011 16:01:00 Document Registration [id number] 08/19/2011 01:01:00 Document Registration [id number] 08/16/2011 11:30:00 Document Registration [id number] 08/13/2011 08:20:00 Document Registration [id number] 08/07/2011 13:12:00 Document Registration [id number] 07/08/2011 20:43:00 Document Registration [id number] 05/22/2011 00:00:00 Document Registration [id number] 02/04/2011 11:57:00 Document Registration [id number] 12/02/2017 08:00:00 12/02/2017 23:59:59 [facility] Outpatient NAPOLEON FITZPATRICK APRN [facility] [id number] 12/02/2017 08:00:00 Document Registration
== END 2018-03-05 14:49 | disposition home or self-care (01) ==
LOC: EDUNIT# 21:33 → ER 21:35 → 4TH 21:37 → UNDOADMOB 03-05 00:20 → UNDODISOB 03-05 15:20
PROVIDERS: ADMIT Family Medicine; ATTEND Family Medicine
DX: R07.89 Other chest pain (principal); E05.90 Thyrotoxicosis, unspecified without thyrotoxic crisis or storm; E87.2 Acidosis; D68.59 Other primary thrombophilia; Z86.711 Personal history of pulmonary embolism; Z86.718 Personal history of other venous thrombosis and embolism; E78.00 Pure hypercholesterolemia, unspecified; I10 Essential (primary) hypertension; Z79.01 Long term (current) use of anticoagulants
CPT/HCPCS: 36415; 71045; 71275; 80053; 80061; 82150; 82550; 82553; 83605; 83690; 83735; 83874; 83880; 84439; 84443; 84484; 85025; 85610; 85730; 87040; 93005; 93041

== ENCOUNTER → 2020-09-04 | Outpatient (CLI) | payer OTHER ==
[~2020-09-04] MED LIST changes: -ACET-2469 PO; +ACET-3075 PO; +CELE200C PO; +RIVA20TA2 PO
[2020-09-04 10:52] LABS: BASOPHILS % (AUTO) 0 % (0-10); EOSINOPHILS # (AUTO) 0.1 10^3/uL (0.0-0.3); EOSINOPHILS % (AUTO) 1 % (0-10); HEMATOCRIT 42 % (35-52); LYMPHOCYTES # (AUTO) 1.9 10^3/uL (1.0-4.0); LYMPHOCYTES % (AUTO) 21 % (12-44); MEAN CORPUSCULAR HEMOGLOBIN 31 pg (25-34); MEAN CORPUSCULAR HGB CONC 33 g/dL (32-36); MEAN CORPUSCULAR VOLUME 93 fL (80-99); MEAN PLATELET VOLUME 9.6 fL (9.0-12.2); MONOCYTES # (AUTO) 0.4 10^3/uL (0.0-1.0); MONOCYTES % (AUTO) 4 % (0-12); NEUTROPHILS # (AUTO) 6.6 10^3/uL (1.8-7.8); NEUTROPHILS % (AUTO) 73 % (42-75); PLATELET COUNT 281 10^3/uL (130-400); WHITE BLOOD COUNT 9.1 10^3/uL (4.3-11.0)
[2020-09-04 11:23] LABS: ALANINE AMINOTRANSFERASE 133 U/L (0-55); ALBUMIN 4.1 GM/DL (3.2-4.5); ALKALINE PHOSPHATASE 69 U/L (40-136); BILIRUBIN,TOTAL 0.5 MG/DL (0.1-1.0); BUN/CREATININE RATIO 21; CALCIUM 9.4 MG/DL (8.5-10.1); CARBON DIOXIDE 25 MMOL/L (21-32); CHLORIDE 103 MMOL/L (98-107); CREATININE SERUM 0.68 MG/DL (0.60-1.30); GFR ESTIMATED > 60; GLUCOSE 274 MG/DL (70-105); POTASSIUM 4.3 MMOL/L (3.6-5.0); SODIUM 138 MMOL/L (135-145); TOTAL PROTEIN 6.6 GM/DL (6.4-8.2)
== END ==
LOC: EDSTATUS 03-08 15:54 → ONC 10:25
PROVIDERS: ATTEND Internal Medicine Hematology & Oncology
DX: D68.59 Other primary thrombophilia (principal); Z79.01 Long term (current) use of anticoagulants
CPT/HCPCS: 80053; 85025; G0463; 99213

== ENCOUNTER 2021-08-21 22:18 | Emergency (ER) | payer OTHER ==
[~2021-08-21] VITALS: Ht 173 cm; Wt 123.0 kg
[2021-08-21] MEDS ORDERED: methylPREDNISolone 125 MG (Solu-MEDROL) VIAL IV STA (22:45)
[2021-08-21] MEDS ORDERED: FAMOTIDINE 20MG/2ML IV (PEPCID) IV STA (22:45)
[2021-08-21] MEDS ORDERED: diphenhydrAMINE 50 MG/ML INJ (BENADRYL) IV STA (22:45)
--- NOTE | 2021-08-21 22:52 | ED Integumentary General ---
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 GENAO Allergies and Home Medications Allergies Coded Allergies: erythromycin base (Verified Allergy, Unknown, 10/25/12) Patient Home Medication List Home Medication List Reviewed: Yes Acetaminophen/Diphenhydramine (Tylenol Pm Ex-Strength Caplet) 1 Each Tablet, 1 TAB PO HS, (Reported) Entered as Reported by: ISRAEL GARCIA on 05/23/16810 Celecoxib (Celebrex) 200 Mg Capsule, 200 MG PO HS, (Reported) Entered as Reported by: DAVID HICKEY on 03/05/18930 Desvenlafaxine Succinate (Pristiq ER) 50 Mg Tab.er.24h, 100 MG PO HS, (Reported) Entered as Reported by: ISRAEL GARCIA on 05/23/16810 Gabapentin (Gabapentin) 300 Mg Capsule, 300 MG PO HS, (Reported) Entered as Reported by: ISRAEL GARCIA on 05/23/16810 Nebivolol HCl (Bystolic) 10 Mg Tab, 10 MG PO HS, (Reported) Entered as Reported by: DAVID HICKEY on 03/05/18929 Rivaroxaban (Xarelto Tablet) 20 Mg Tablet, 20 MG PO HS, (Reported) Entered as Reported by: DAVID HICKEY on 03/05/18929 Review of Systems Review of Systems Constitutional: no symptoms reported EENTM: no symptoms reported Respiratory: no symptoms reported Cardiovascular: no symptoms reported Gastrointestinal: no symptoms reported Genitourinary: no symptoms reported Musculoskeletal: no symptoms reported Skin: see HPI Psychiatric/Neurological: No Symptoms Reported Endocrine: No Symptoms Reported Hematologic/Lymphatic: No Symptoms Reported Past Nqgztjn-Ycchqw-Mrwjut Hx Seasonal Allergies Seasonal Allergies: No Past Medical History Surgeries: Yes (SEE BELOW) Cardiac, Hysterectomy, Oophorectomy, Orthopedic, Tonsillectomy, Vascular Surgery Respiratory: Yes (MULTIPLE PE'S 2007--VENA CAVA FILTER IN PLACE ) Pulmonary Embolism Currently Using CPAP: No Currently Using BIPAP: No Cardiac: Yes Deep Vein Thrombosis, High Cholesterol, Hypertension, Valvular Heart Disease Neurological: No Reproductive Disorders: Yes (X1 ECTOPIC ; PT ON GABAPENTIN + PRISTIQ FOR MENOPAUSAL SYMPTOMS) Female Reproductive Disorders: Polycystic 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 JEAN BAPTISTE--MILD CAD, NO INTERVENTION Physical Exam Vital Signs Vital Signs - First Documented 08/21/21 22:30 Temp 37.0 Pulse 82 Resp 16 B/P (MAP) 144/97 (113) Pulse Ox 96 O2 Delivery Room Air Capillary Refill : General Appearance: WD/WN, no apparent distress, obese HEENT: normal ENT inspection, other (NO SWELLING TO LIPS 0R ORAL MUCOSA) Neck: normal inspection Cardiovascular: regular rate, rhythm, no murmur Respiratory: lungs clear, normal breath sounds, no respiratory distress, no accessory muscle use Gastrointestinal: soft Extremities: normal inspection, no pedal edema Neurologic/Psychiatric: crumb packer II-XII nml as tested, no motor/sensory deficits, alert, normal mood/affect, oriented x 3 Skin: normal color, warm/dry, rash (PATCHY HIVES TO TRUNK, ARMS, LEGS, NECK, SCALP) Progress/Results/Core Measures Results/Orders My Orders Orders - RAYMOND FIELD DO Ed Iv/Invasive Line Start (08/21/21 22:45) Famotidine Injection (Pepcid Injection) (08/21/21 22:45) Diphenhydramine Injection (Benadryl Inje (08/21/21 22:45) Methylprednisolone Sod Succ (Solu-Medrol (08/21/21 22:45) Vital Signs/I&O 08/21/21 08/21/21 22:30 23:45 Temp 37.0 36.5 Pulse 82 87 Resp 16 78 B/P (MAP) 144/97 (113) 145/97 Pulse Ox 96 96 O2 Delivery Room Air Room Air Progress Progress Note : Progress Note GIVEN SOLU-MEDROL, BENADRYL, PEPCID--SYMPTOMS IMPROVED--ITCHING RESOLVED AND R KWAME FADING Departure Impression Primary Impression: Hives of unknown origin Disposition: HOME, SELF-CARE Condition: Improved Departure-Patient Inst. Referrals: MERLIN TIMMONS MD (PCP) Primary Care Physician NAPOLEON FITZPATRICK (Family) Primary Care Physician Patient Instructions: Hives (DC), Topical Corticosteroid Medicines, Allergic Reaction ED Add. Discharge Instructions: LOTS OF CLEAR LIQUIDS CLARITIN 10 MG IN AM, BENADRYL 50 MG IN PM NEEDED FOR RASH AND ITCHING FILL PRESCRIPTION FOR PREDNISONE AND TAKE PRESCRIBED IF RASH/ITCHING ARE STILL PRESENT IN THE MORNING RETURN TO ER IF SYMPTOMS WORSEN All discharge instructions reviewed with patient and/or family. Voiced understanding. RAYMOND FIELD DO Aug 21, 2021 22:52
[2021-08-21 23:45] VITALS: BP 145/97
== END 2021-08-21 23:48 | disposition home or self-care (01) ==
LOC: EDUNIT# 22:18 → ER 22:20
DX: L50.9 Urticaria, unspecified (principal); I10 Essential (primary) hypertension; E66.9 Obesity, unspecified; Z86.711 Personal history of pulmonary embolism; Z86.718 Personal history of other venous thrombosis and embolism; Z79.01 Long term (current) use of anticoagulants

== ENCOUNTER 2021-08-22 18:23 | Emergency (ER) | payer OTHER ==
[~2021-08-22] VITALS: Ht 172 cm; Wt 123.0 kg
--- NOTE | 2021-08-22 18:57 | ED Integumentary General ---
General Chief Complaint: Allergic Reaction Stated Complaint: BODY RASH Nursing Triage Note: PT AMBULATORY TO ER. PT C/O GENERALIZED RASH/ITCHING TO BODY, SEEN IN ER LAST NIGHT. PT REPORTS TAKING PEPCID AND BENADRYL AT HOME. RX FOR PREDNISONE, HAS NOT PICKED UP FROM PHARMACY DUE TO HOLIDAY. Source: patient Exam Limitations: no limitations History of Present Illness Date Seen by Provider: Aug 22, 2021 Time Seen by Provider: 18:50 Allergies and Home Medications Allergies Coded Allergies: erythromycin base (Verified Allergy, Unknown, 10/25/12) Patient Home Medication List Acetaminophen/Diphenhydramine (Tylenol Pm Ex-Strength Caplet) 1 Each Tablet, 1 TAB PO HS, (Reported) Entered as Reported by: ISRAEL GARCIA on 05/23/16 08 Celecoxib (Celebrex) 200 Mg Capsule, 200 MG PO HS, (Reported) Entered as Reported by: DAVID HICKEY on 03/05/18 09 Desvenlafaxine Succinate (Pristiq ER) 50 Mg Tab.er.24h, 100 MG PO HS, (Reported) Entered as Reported by: ISRAEL GARCIA on 05/23/16 0811 Gabapentin (Gabapentin) 300 Mg Capsule, 300 MG PO HS, (Reported) Entered as Reported by: ISRAEL GARCIA on 05/23/16 0811 Nebivolol HCl (Bystolic) 10 Mg Tab, 10 MG PO HS, (Reported) Entered as Reported by: DAVID HICKEY on 03/05/18 09 Rivaroxaban (Xarelto Tablet) 20 Mg Tablet, 20 MG PO HS, (Reported) Entered as Reported by: DAVID HICKEY on 03/05/18 09 Past Entnrqx-Xsnput-Pbhwwq Hx Patient Social History Tobacco Use?: No Use of E-Cig and/or Vaping dev: No Substance use?: No Alcohol Use?: No Pt feels they are or have been: No Immunizations Up To Date First/Initial COVID19 Vaccinat: SEP 2020 Second COVID19 Vaccination Viktor: OCT 2020 COVID19 Vaccine Toll Line Inspector: ISAAK Seasonal Allergies Seasonal Allergies: No Past Medical History Surgery/Hospitalization HX: HYSTO, TUBAL, HEART CATH, KNEE X3, IVC FILTER, HTN, PROTEIN C DEFEICIENCY, DVT/PE Surgeries: Yes (SEE BELOW) Cardiac, Hysterectomy, Oophorectomy, Orthopedic, Tonsillectomy, Vascular Surgery Respiratory: Yes (MULTIPLE PE'S 2007--VENA CAVA FILTER IN PLACE ) Pulmonary Embolism Currently Using CPAP: No Currently Using BIPAP: No Cardiac: Yes Deep Vein Thrombosis, High Cholesterol, Hypertension, Valvular Heart Disease Neurological: No Reproductive Disorders: Yes (X1 ECTOPIC ; PT ON GABAPENTIN + PRISTIQ FOR MENOPAUSAL SYMPTOMS) Female Reproductive Disorders: 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 JEAN BAPTISTE--MILD CAD, NO INTERVENTION Physical Exam Vital Signs Vital Signs - First Documented 08/22/21 18:38 Temp 35.9 Pulse 90 Resp 20 B/P (MAP) 145/85 (105) Pulse Ox 96 O2 Delivery Room Air Capillary Refill : Progress/Results/Core Measures Results/Orders Lab Results Laboratory Tests Test 08/22/21 19:00 Range/Units Glucometer 222 H 70-110 MG/DL My Orders Orders - ELIF DEVINE APRN Accucheck Stat ONCE (08/22/21 18:58) Dexamethasone Injection (Decadron Inje (08/22/21 19:15) Vital Signs/I&O 08/22/21 18:38 Temp 35.9 Pulse 90 Resp 20 B/P (MAP) 145/85 (105) Pulse Ox 96 O2 Delivery Room Air Blood Pressure Mean: 105 Departure Impression Primary Impression: Allergic reaction Additional Impression: Hives Disposition: 01 HOME, SELF-CARE Condition: Stable Departure-Patient Inst. Decision time for Depature: 19:10 Referrals: RONIT GENAO MD (PCP) Primary Care Physician KEDAR HASTINGS APRN (Family) Primary Care Physician Patient Instructions: Hives Add. Discharge Instructions: Plan: 1. Monitor your blood sugar at least twice a day while taking Prednisone. 2. If your blood sugar is staying over 500 please return to ER. 3. Take Prednisone and Pepcid as previously prescribed. Take Prednisone with food. 4. Return for any new, concerning, or worsening symptoms. All discharge instructions reviewed with patient and/or family. Voiced understanding. ELIF DEVINE STICKER HAND Aug 22, 2021 18:57
[2021-08-22 19:33] VITALS: BP 123/77
== END 2021-08-22 19:33 | disposition home or self-care (01) ==
LOC: EDUNIT# 18:23 → ER 18:25
DX: L50.9 Urticaria, unspecified (principal); T45.0X5A Adverse effect of antiallergic and antiemetic drugs, initial encounter; I10 Essential (primary) hypertension; E66.9 Obesity, unspecified; Z86.711 Personal history of pulmonary embolism; Z86.718 Personal history of other venous thrombosis and embolism; Z79.01 Long term (current) use of anticoagulants
CPT/HCPCS: 82947

== ENCOUNTER 2021-10-03 05:34 | Outpatient (CLI) | payer OTHER ==
[~2021-10-03] VITALS: Ht 172.7 cm; Wt 125.3 kg
[2021-10-03] MEDS ORDERED: EMPA1TAB15 PO (10:03)
[2021-10-03] MEDS ORDERED: MULT-593 PO (10:03)
[2021-10-03] MEDS ORDERED: ESOM20CA PO (10:03)
[2021-10-03] MEDS ORDERED: LACT1CAP62 PO (10:06)
== END 2021-10-03 10:25 | disposition home or self-care (01) ==
LOC: PREOP 05:34
PROVIDERS: ATTEND Internal Medicine
DX: Z01.818 Encounter for other preprocedural examination (principal)

== ENCOUNTER → 2021-10-11 | Day surgery (SDC) | payer OTHER ==
--- NOTE | 2021-10-02 17:34 | HISTORY AND PHYSICAL ---
DATE OF SERVICE: HISTORY: The patient is a 46-year-old white female being referred for screening colonoscopy as she has a history of IBS-D, which has benefited from recent course of Xifaxan. After about 12 days on medication. She did develop hives took several days to resolve. She stopped the Xifaxan early. She denies blood in the stool, has had improvement in diarrhea and abdominal discomfort as well as urgency that started a week or so into her course of Xifaxan. It has persisted. She denies any change in weight. She is deemed to be of average risk as she is not aware of any family history for colon cancer. PAST MEDICAL HISTORY: Significant for type 2 diabetes and hypertension. MEDICATIONS: Include Synjardy 06/1000 one daily and losartan 25 mg daily. PHYSICAL EXAMINATION: GENERAL: Reveals a pleasant white female, appears to be in no acute distress. VITAL SIGNS: Blood pressure 126/78, weight 276 pounds, it is down 7.4 pounds from 2 months ago. HEENT: Unremarkable. Sclerae nonicteric. No evidence for pallor. CHEST: Clear to auscultation. CARDIOVASCULAR: Reveals a regular rate and rhythm without murmur, S3 or S4. ABDOMEN: Soft, supple without mass, organomegaly or tenderness. EXTREMITIES: Reveal no cyanosis, clubbing or edema. ASSESSMENT AND PLAN: The patient is being set up for first screening colonoscopy. Prep instructions and Suprep kit were given and questions were answered. Job ID: [id number] DocumentID: [id number] Dictated Date: 09/02/2021 17:45:50 Metallurgist Process Date: 09/02/2021 18:10:05 Dictated By: RONIT GENAO MD
[~2021-10-11] VITALS: Ht 172.7 cm; Wt 125.3 kg
[~2021-10-11] MED LIST changes: +EMPA1TAB15 PO; +ESOM20CA PO; +LACT1CAP62 PO; +LACTATED RINGERS 1,000 ML IV ONE; +LACTATED RINGERS 1,000 ML IV STA; +LIDOCAINE JELLY 2% 6 ML SYRINGE MM PRN; +MULT-593 PO; +PROPOFOL INJECTION 50 ML IV ONE
--- NOTE | 2021-10-11 08:45 | Pre-Op Note & Conscious Sedat ---
Pre-Operative Progress Note H&P Reviewed The H&P was reviewed, patient examined and no changes noted. Date H&P Reviewed: Oct 11, 2021 Time H&P Reviewed: 08:45 Conscious Sedation Pre-Proced ASA Score 2 For ASA 3 and 4: Consider anesthesia and medical clearance. Also, for patients with a history of failed moderate sedation consider anesthesia. Airway Lungs Heart ASA score ASA 1: a normal healthy patient ASA 2: a patient with a mild systemic disease (mid diabetes, controlled hypertension, obesity ASA 3: a patient with a severe systemic disease that limits activity (angina, COPD, prior Myocardial infarction) ASA 4: a patient with an incapacitating disease that is a constant threat to life (CHF, renal failure) ASA 5: a moribund patient not expected to survive 24 hrs. (ruptured aneurysm) ASA 6: a declared brain- patient whose organs are being harvested. For emergent operations, add the letter E after the classification Mallampati Classification Grade 3 Sedation Plan Analgesia, Amnesia, Plan communicated to team members, Discussed options with patient/fam, Discussed risks with patient/fam The patient is an appropriate candidate to undergo the planned procedure, sedation, and anesthesia. The patient immediately re-assessed prior to indication. RONIT GENAO MD Oct 11, 2021 08:45
[2021-10-11 08:47] VITALS: BP 132/82
[2021-10-11 10:15] VITALS: BP 124/62
[2021-10-11 10:40] VITALS: BP 117/57
[2021-10-11 10:49] VITALS: BP 117/57
--- NOTE | 2021-10-11 11:07 | Anesthesia-General Post-Op ---
MAC Patient Condition Mental Status/LOC: Same as Preop Cardiovascular: Satisfactory Nausea/Vomiting: Absent Respiratory: Satisfactory Pain: Controlled Complications: Absent Post Op Complications Complications None Follow Up Care/Instructions Patient Instructions None needed. Anesthesiology Discharge Order Discharge Order Patient is doing well, no complaints, stable vital signs, no apparent adverse anesthesia problems. No complications reported per nursing. MANSOOR BOYD CRNA Oct 11, 2021 11:07
--- NOTE | 2021-10-11 14:33 | OPERATIVE REPORT ---
DATE OF SERVICE: COLONOSCOPY SUMMARY PRIMARY CARE PROVIDER: Ronit Genao MD INDICATION FOR THE PROCEDURE: Screening colon. DESCRIPTION OF PROCEDURE: The patient was placed in the left lateral decubitus position. Prior to undergoing colonoscopy, digital rectal evaluation was performed. Anal sphincter tone was normal. Perianal reflexes intact. The colonoscope was inserted in the rectum and under direct visualization advanced to the cecum. The cecum was identified by identification of the ileocecal valve and cecal strap. Photographic documentation was obtained. Quality of prep was good. FINDINGS: There was no evidence for internal or external hemorrhoids. The rectum, sigmoid colon, descending colon, splenic flexure, transverse colon, hepatic flexure, ascending colon, and cecum were unremarkable with no evidence for neoplasia, diverticular disease, hemorrhoids or other abnormality. ASSESSMENT: Normal colonoscopy to the cecum. We would advocate consideration for repeat screening colonoscopy in 10 years. Job ID: [id number] DocumentID: [id number] Dictated Date: 10/11/2021 10:13:47 [employer] Date: 10/11/2021 14:32:40 Dictated By: RONIT GENAO MD
== END ==
LOC: ENDO 08:05
PROVIDERS: ATTEND Internal Medicine
DX: Z12.11 Encounter for screening for malignant neoplasm of colon (principal); I10 Essential (primary) hypertension; K21.9 Gastro-esophageal reflux disease without esophagitis; E11.9 Type 2 diabetes mellitus without complications; E66.9 Obesity, unspecified; Z79.899 Other long term (current) drug therapy; Z68.41 Body mass index [BMI] 40.0-44.9, adult